=== PATIENT | female | born 1955 | race Hispanic/Latino ===

== ENCOUNTER 2017-05-16 20:51 | Emergency (ER) | payer MEDICAID ==
[~2017-05-16 20:51] MED LIST: ALBU0.63 IH; ALPR1TAB5 PO; AMLO10TA2 PO; ATOR10TA69 PO; CYAN10009 PO; DOXY100T2 PO; ERGO500014 PO; FOLI1TAB15 PO; FURO20TA6 PO; GLIP5TAB11 PO; HYDR-4060 PO; INSU100I21 SQ; LEVO200T5 PO; LEVO25TA9 PO; LINA5TAB PO; LISI-613 PO; SERT100T PO; SPIR100T5 PO
[2017-05-16 21:25] LABS: APPEARANCE,URINE Clear (CLEAR); BILIRUBIN,URINE Negative (NEGATIVE); COLOR,URINE Yellow (YELLOW); GLUCOSE, URINE (UA) Negative (NEGATIVE); KETONES,URINE Negative (NEGATIVE); LEUKOCYTE ESTERASE ,URINE Negative (NEGATIVE); NITRATE,URINE Negative (NEGATIVE); OCCULT BLOOD,URINE Trace (NEGATIVE); PROTEIN,URINE Negative (NEGATIVE); UROBILINOGEN,URINE 0.2 mg/dL (0.2-1.0)
[2017-05-16 21:30] LABS: BASOPHILS % (AUTO) 0.6 % (0.0-5.0); EOSINOPHILS % (AUTO) 1.6 % (0.0-8.0); HEMATOCRIT 33.1 % (36-48); LYMPHOCYTES % (AUTO) 22.8 % (21.0-51.0); MEAN CORPUSCULAR HEMOGLOBIN 32.4 pg (27.0-33.0); MEAN CORPUSCULAR VOLUME 92.6 fL (79-99); MONOCYTES % (AUTO) 8.7 % (3.0-13.0); NEUTROPHILS % (AUTO) 66.3 % (40.0-77.0); PLATELET COUNT (AUTO) 142 K/uL (130-400); RED BLOOD CELL COUNT(AUTO) 3.58 MIL/uL (4.00-5.50); RED CELL DISTRIBUTION WIDTH 14.5 % (11.0-15.5); WHITE BLOOD COUNT (AUTO) 8.3 K/uL (4.8-10.8)
[2017-05-16 21:35] LABS: BACTERIA,URINE None Seen /HPF (None Seen); RBC,URINE 0-1 /HPF (0-1); SQUAMOUS EPITHELIAL CELL,UR 0-2 /HPF (0-2); WBC,URINE 0-1 /HPF (0-1)
[2017-05-16 21:44] LABS: CREATININE 1.8 mg/dL (0.5-1.5); POTASSIUM 4.6 mmol/L (3.5-5.1)
[2017-05-16 21:57] LABS: ALBUMIN 2.7 g/dL (3.5-5.0); BILIRUBIN,TOTAL 0.7 mg/dL (0.2-1.0); CREATINE KINASE MB 0.9 ng/mL (0.5-3.6); TOTAL PROTEIN, SERUM 6.6 g/dL (6.0-8.3)
== END 2017-05-16 23:25 | disposition home or self-care (01) ==
LOC: EDH 20:51
DX: I10 Essential (primary) hypertension (principal); R20.2 Paresthesia of skin; G89.29 Other chronic pain; E11.9 Type 2 diabetes mellitus without complications; I25.10 Atherosclerotic heart disease of native coronary artery without angina pectoris; E78.5 Hyperlipidemia, unspecified; E07.9 Disorder of thyroid, unspecified; Z88.0 Allergy status to penicillin; Z88.8 Allergy status to other drugs, medicaments and biological substances
CPT/HCPCS: 36415; 80053; 81001; 82550; 82553; 85025; 93005

== ENCOUNTER 2017-12-12 10:11 | Emergency (ER) | payer MEDICAID ==
[~2017-12-12 10:11] MED LIST changes: -AMLO10TA2 PO; +AMLO10TA6 PO
[2017-12-12] MEDS ORDERED: MORPHINE SULFATE 2 MG/ML 1ML SYG ONE (11:40)
[2017-12-12] MEDS ORDERED: ONDANSETRON HCL 4 MG/2 ML VIAL ONE (11:40)
[2017-12-12 12:04] LABS: APPEARANCE,URINE Clear (CLEAR); BILIRUBIN,URINE Negative (NEGATIVE); COLOR,URINE Yellow (YELLOW); GLUCOSE, URINE (UA) Negative (NEGATIVE); KETONES,URINE Negative (NEGATIVE); LEUKOCYTE ESTERASE ,URINE Negative (NEGATIVE); NITRATE,URINE Negative (NEGATIVE); OCCULT BLOOD,URINE Trace (NEGATIVE); PROTEIN,URINE POS 2+ (NEGATIVE)
[2017-12-12 12:35] LABS: BACTERIA,URINE Rare /HPF (None Seen); RBC,URINE 0-1 /HPF (0-1); SQUAMOUS EPITHELIAL CELL,UR Rare /HPF (0-2); WBC,URINE None Seen /HPF (0-1)
[2017-12-12 13:26] LABS: BASOPHILS % (AUTO) 0.7 % (0.0-5.0); EOSINOPHILS % (AUTO) 0.8 % (0.0-8.0); LYMPHOCYTES % (AUTO) 21.6 % (21.0-51.0); MEAN CORPUSCULAR HGB CONC 34.6 g/dL (32.0-36.0); MEAN CORPUSCULAR VOLUME 89.6 fL (79-99); MONOCYTES % (AUTO) 7.8 % (3.0-13.0); NEUTROPHILS % (AUTO) 69.1 % (40.0-77.0); PLATELET COUNT (AUTO) 148 K/uL (130-400); RED BLOOD CELL COUNT(AUTO) 3.57 MIL/uL (4.00-5.50); RED CELL DISTRIBUTION WIDTH 13.7 % (11.0-15.5); WHITE BLOOD COUNT (AUTO) 4.7 K/uL (4.8-10.8)
[2017-12-12 13:41] LABS: ALBUMIN 2.6 g/dL (3.5-5.0); BILIRUBIN,TOTAL 0.4 mg/dL (0.2-1.0); CREATININE 1.7 mg/dL (0.5-1.5); TOTAL PROTEIN, SERUM 6.8 g/dL (6.0-8.3)
[2017-12-12 14:21] LABS: POTASSIUM 5.5 mmol/L (3.5-5.1)
== END 2017-12-12 16:24 | disposition home or self-care (01) ==
LOC: EDH 10:11
DX: M54.5 Low back pain (principal); M25.551 Pain in right hip; I10 Essential (primary) hypertension; E78.5 Hyperlipidemia, unspecified; E11.9 Type 2 diabetes mellitus without complications; F32.9 Major depressive disorder, single episode, unspecified; I25.10 Atherosclerotic heart disease of native coronary artery without angina pectoris; Z88.0 Allergy status to penicillin; Z88.7 Allergy status to serum and vaccine
CPT/HCPCS: 36415; 72131; 73502; 80053; 81001; 85025; 96374; 96375; 99285; J2405

== ENCOUNTER 2018-06-14 20:03 | Inpatient (IN) | payer MEDICAID ==
[~2018-06-14] VITALS: Ht 160 cm; Wt 147.4 kg
[~2018-06-14 20:03] MED LIST changes: -AMLO10TA6 PO; +AMLO10TA7 PO
[2018-06-14] MEDS ORDERED: ACETAMINOPHEN EXTRA STRENGTH 500 MG TABLET ONE (20:14)
[2018-06-14 20:38] LABS: BASOPHILS % (AUTO) 0.3 % (0.0-5.0); EOSINOPHILS % (AUTO) 0.2 % (0.0-8.0); HEMATOCRIT 30.7 % (36-48); LYMPHOCYTES % (AUTO) 9.8 % (21.0-51.0); MEAN CORPUSCULAR HEMOGLOBIN 31.1 pg (27.0-33.0); MEAN CORPUSCULAR HGB CONC 34.8 g/dL (32.0-36.0); MEAN CORPUSCULAR VOLUME 89.4 fL (79-99); MONOCYTES % (AUTO) 7.7 % (3.0-13.0); PLATELET COUNT (AUTO) 120 K/uL (130-400); RED BLOOD CELL COUNT(AUTO) 3.43 MIL/uL (4.00-5.50); RED CELL DISTRIBUTION WIDTH 13.2 % (11.0-15.5); WHITE BLOOD COUNT (AUTO) 8.9 K/uL (4.8-10.8)
[2018-06-14 20:56] LABS: APPEARANCE,URINE Clear (CLEAR); BILIRUBIN,URINE Negative (NEGATIVE); COLOR,URINE Yellow (YELLOW); GLUCOSE, URINE (UA) Negative (NEGATIVE); KETONES,URINE Negative (NEGATIVE); LEUKOCYTE ESTERASE ,URINE Moderate (NEGATIVE); NITRATE,URINE Negative (NEGATIVE); OCCULT BLOOD,URINE Small (NEGATIVE); PROTEIN,URINE POS 2+ mg/dL (NEGATIVE)
[2018-06-14 21:15] LABS: CREATININE 1.8 mg/dL (0.5-1.5); POTASSIUM 5.6 mmol/L (3.5-5.1)
[2018-06-14 21:18] LABS: AMORPHOUS SEDIMENT,UR Few /LPF (None Seen); BACTERIA,URINE Few /HPF (None Seen); SQUAMOUS EPITHELIAL CELL,UR Few /HPF (0-2)
[2018-06-14 21:19] LABS: ALBUMIN 2.7 g/dL (3.5-5.0); BILIRUBIN,TOTAL 0.5 mg/dL (0.2-1.0); TOTAL PROTEIN, SERUM 6.3 g/dL (6.0-8.3)
[2018-06-14] MEDS ORDERED: ONDANSETRON HCL 4 MG/2 ML VIAL ONE (22:29)
[2018-06-14] MEDS ORDERED: MORPHINE SULFATE 4 MG/1ML SYG ONE (22:30)
[2018-06-14] MEDS ORDERED: LEVOFLOXACIN 750 MG/D5W 150 ML 150 ML ONE (22:36)
[2018-06-15] MEDS ORDERED: SODIUM POLYSTYRENE SULFONATE 15 GM/60 ML ML ONE (00:34)
[2018-06-15] MEDS ORDERED: CEFTRIAXONE SODIUM 1 GM ONE (01:05)
--- NOTE | 2018-06-15 01:15 | NUR ---
REPORT RECEIVED BY BETH QUAN
--- NOTE | 2018-06-15 02:17 | NUR ---
PT ARRIVED TO UNIT AT THIS TIME. NO DISTRESS NOTED. REQUIRED ASSISTANCE TO AMBULATE TO BED. WEIGHED ON STANDING SCALE. AAO3. PERRLA. AT BEDSIDE. NS AT 100ML/HR. ROOM AIR. STATES NAUSEA. GIVEN ZOFRAN 4MG VIA IV.
[2018-06-15] MEDS ORDERED: ONDANSETRON HCL 4 MG/2 ML VIAL ONE (02:29)
[2018-06-15 02:39] VITALS: BP 127/63
[2018-06-15] MEDS: SODIUM CHLORIDE 0.9% 1000ML 1,000 ML IV SCH ×4 (03:34→22:56)
[2018-06-15] MEDS ORDERED: SODIUM POLYSTYRENE SULFONATE 15 GM/60 ML ML PO ONE (03:45)
[2018-06-15] MEDS ORDERED: ACETAMINOPHEN 325 MG TAB PO PRN (03:45)
[2018-06-15] MEDS ORDERED: PHARMACY COMMUNICATION MISC SCH (03:45)
[2018-06-15] MEDS ORDERED: ONDANSETRON HCL 4 MG/2 ML VIAL IVP PRN (03:45)
[2018-06-15 03:59] LABS: HEMATOCRIT 28.5 % (36-48); MEAN CORPUSCULAR HEMOGLOBIN 30.2 pg (27.0-33.0); MEAN CORPUSCULAR HGB CONC 33.6 g/dL (32.0-36.0); MEAN CORPUSCULAR VOLUME 89.8 fL (79-99); PLATELET COUNT (AUTO) 103 K/uL (130-400); RED BLOOD CELL COUNT(AUTO) 3.17 MIL/uL (4.00-5.50); RED CELL DISTRIBUTION WIDTH 13.5 % (11.0-15.5); WHITE BLOOD COUNT (AUTO) 6.6 K/uL (4.8-10.8)
[2018-06-15 04:07] LABS: CREATININE 1.8 mg/dL (0.5-1.5); POTASSIUM 4.7 mmol/L (3.5-5.1)
[2018-06-15] MEDS ORDERED: ALPR1TAB5 PO (04:38)
[2018-06-15] MEDS ORDERED: LISI-617 PO (04:38)
[2018-06-15] MEDS ORDERED: LINA5TAB PO (04:38)
[2018-06-15] MEDS ORDERED: FOLI1TAB15 PO (04:38)
[2018-06-15] MEDS ORDERED: TRAM50TA4 PO (04:38)
[2018-06-15] MEDS ORDERED: MONT10TA24 PO (04:38)
[2018-06-15] MEDS ORDERED: ONDA8TAB11 PO (04:38)
[2018-06-15] MEDS ORDERED: SPIR25TA6 PO (04:38)
[2018-06-15] MEDS ORDERED: AMLO10TA7 PO (04:38)
[2018-06-15] MEDS ORDERED: LISI5TAB PO (04:38)
[2018-06-15] MEDS ORDERED: FURO40TA5 PO (04:38)
[2018-06-15] MEDS ORDERED: ALBU8.5H8 IH (04:38)
[2018-06-15] MEDS ORDERED: LEVO200T5 PO (04:38)
[2018-06-15] MEDS ORDERED: CYAN100084 PO (04:38)
[2018-06-15] MEDS ORDERED: SERT50TA PO (04:38)
[2018-06-15] MEDS ORDERED: ERGO500014 PO (04:38)
[2018-06-15 07:35] VITALS: BP 136/59
--- NOTE | 2018-06-15 09:36 | NUR ---
[facility] met with pt, Addi [phone] and daughter at bedside. Pt on SSD, has daily provider, w/c, bsc, shower chair, nebulizer, no services. Plan is home at [place] Daughter Heydi Rm [phone] is also ER contact Addendum: 06/15/18 at 0938 by ASHLEY FAITH SS Amended: Links added.
[2018-06-15] MEDS: PANTOPRAZOLE SODIUM 40 MG TABLET.DR PO SCH (09:44)
[2018-06-15 11:54] VITALS: BP 141/69
[2018-06-15] MEDS ORDERED: ALBUTEROL SULFATE 0.083% 2.5 MG/3 ML INH IH SCH (12:00)
[2018-06-15] MEDS ORDERED: ALBUTEROL SULFATE 0.083% 2.5 MG/3 ML INH IH PRN (12:15)
[2018-06-15 15:45] VITALS: BP 150/60
--- NOTE | 2018-06-15 16:28 | NUR ---
PAGED DR. CRUM TO INFORM OF PT.'S REQUEST FOR DR. WEINER CONSULT, PER PT.'S DAUGHTER. AWAITING RESPONSE.
--- NOTE | 2018-06-15 16:38 | NUR ---
AWAITING DR. CRUM RESPONSE. PAGED DR. CRUM VIA HIS OFFICE TO INFORM OF PT.'S REQUEST FOR DR. WEINER CONSULT.
--- NOTE | 2018-06-15 17:00 | NUR ---
CALLED DR. WEINER, TO HIS CELLULAR PHONE NUMBER PROVIDED BY HIS OFFICE STAFF, TO INFORM OF CONSULT. NO RESPONSE. VOICEMAIL LEFT FOR RETURN NUMBER AND CONSULT, PENDING CALLBACK TO INFORM OF PT.'S NAME AND REASON FOR CONSULT.
--- NOTE | 2018-06-15 17:07 | NUR ---
RECEIVED CALL FROM DR. WEINER, INFORMED OF CONSULT AND QUESTIONS ANSWERED. STATES WILL SEE PT. FOLLOW UP WHEN DISCHARGED FROM [facility].
[2018-06-15] MEDS ORDERED: LACT20PA6 PO (17:32)
--- NOTE | 2018-06-15 19:35 | NUR ---
PATIENT COMPLAINING OF HIGH FEVER, TEMP 99.7 ORALLY. PATIENT WITH 2 BLANKETS OFF, ASKED PATIENT IF COULD REMOVE ONE BLANKET TO AID IN DECREASING TEMP, PATIENT STATED NO. PATIENT, ALSO COMPLAINING OF BED BEING UNCOMFORTABLE, ASKED PATIENT IF I COULD HELP HER REPOSTION, PATIENT STATED NO. 0-PATIENT MEDICATED WITH TYLENOL 650 MG PO PER ORDERS FOR TEMP/REQUEST. PATIENT REQUESTING ANOTHER URINE CULTURE TO BE TESTED. SAMPLING EXPERT CALLED, NURSE WAS TOLD TO SENT URINE CULTURE. URINE CULTURE COLLECTED AND SENT TO LAB. PATIENT STATING MAY WANT TO LEAVE HERE AND GO TO [facility], THIS INFORMATION TOLD TO SAMPLING EXPERT.
[2018-06-15 19:42] VITALS: BP 165/67
[2018-06-15] MEDS ORDERED: TRAMADOL HCL 50 MG TABLET PO SCH (21:00)
[2018-06-15] MEDS ORDERED: TRAMADOL HCL 50 MG TABLET PO PRN (21:00)
[2018-06-15 21:05] LABS: APPEARANCE,URINE Clear (CLEAR); BILIRUBIN,URINE Negative (NEGATIVE); COLOR,URINE Yellow (YELLOW); GLUCOSE, URINE (UA) Negative (NEGATIVE); KETONES,URINE Negative (NEGATIVE); LEUKOCYTE ESTERASE ,URINE Trace (NEGATIVE); NITRATE,URINE Negative (NEGATIVE); OCCULT BLOOD,URINE Small (NEGATIVE); PROTEIN,URINE POS 2+ mg/dL (NEGATIVE); UROBILINOGEN,URINE 0.2 mg/dL (0.2-1.0)
[2018-06-15] MEDS: CEFTRIAXONE SODIUM 1 GM IVP SCH (21:42)
[2018-06-15] MEDS: ALPRAZOLAM 1 MG TAB PO SCH (21:43)
[2018-06-15] MEDS: MONTELUKAST SODIUM 10 MG TAB PO SCH (21:43)
[2018-06-15] MEDS: ONDANSETRON 4 MG TABLET PO SCH (21:43)
[2018-06-15 22:02] LABS: BACTERIA,URINE Few /HPF (None Seen); RBC,URINE 0-1 /HPF (0-1); WBC,URINE 0-1 /HPF (0-1)
[2018-06-15 22:03] LABS: SQUAMOUS EPITHELIAL CELL,UR 0-2 /HPF (0-2)
[2018-06-15 23:40] VITALS: BP_SYST 119; BP_SYST 126; BP_DIAS 57; BP_DIAS 61
[2018-06-16 04:00] VITALS: BP 140/66
[2018-06-16 04:09] LABS: HEMATOCRIT 28.1 % (36-48); MEAN CORPUSCULAR HGB CONC 34.6 g/dL (32.0-36.0); MEAN CORPUSCULAR VOLUME 89.6 fL (79-99); PLATELET COUNT (AUTO) 91 K/uL (130-400); RED BLOOD CELL COUNT(AUTO) 3.14 MIL/uL (4.00-5.50); RED CELL DISTRIBUTION WIDTH 13.8 % (11.0-15.5); WHITE BLOOD COUNT (AUTO) 5.4 K/uL (4.8-10.8)
[2018-06-16 04:32] LABS: ALBUMIN 2.3 g/dL (3.5-5.0); BILIRUBIN,TOTAL 0.4 mg/dL (0.2-1.0); CREATININE 1.8 mg/dL (0.5-1.5); MAGNESIUM 1.8 mg/dL (1.80-2.40); PHOSPHORUS 4.2 mg/dL (2.5-4.9); POTASSIUM 4.4 mmol/L (3.5-5.1); TOTAL PROTEIN, SERUM 5.5 g/dL (6.0-8.3); URIC ACID 7.7 mg/dL (2.6-7.2)
[2018-06-16] MEDS: LEVOTHYROXINE 100 MCG TABLET PO SCH (06:17)
[2018-06-16 07:47] VITALS: BP 136/64
[2018-06-16] MEDS: CYANOCOBALAMIN (VITAMIN B-12) 1,000 MCG TABLET PO SCH (09:07)
[2018-06-16] MEDS: AMLODIPINE BESYLATE 5 MG TAB PO SCH (09:07)
[2018-06-16] MEDS: FOLIC ACID 1 MG TABLET PO SCH (09:07)
[2018-06-16] MEDS: LINAGLIPTIN 5 MG TABLET PO SCH (09:08)
[2018-06-16] MEDS: ALPRAZOLAM 1 MG TAB PO SCH ×2 (09:08→20:48)
[2018-06-16] MEDS: ONDANSETRON 4 MG TABLET PO SCH ×2 (09:08→20:48)
[2018-06-16] MEDS: SODIUM CHLORIDE 0.9% 1000ML 1,000 ML IV SCH ×3 (09:08→21:50)
[2018-06-16] MEDS: PANTOPRAZOLE SODIUM 40 MG TABLET.DR PO SCH (09:08)
[2018-06-16] MEDS: SERTRALINE HCL 50 MG TABLET PO SCH (09:08)
--- NOTE | 2018-06-16 09:45 | NUR ---
DR. Yoanna MELGOZA IN ROOM WITH PT.
[2018-06-16 11:12] VITALS: BP 136/65
[2018-06-16 15:33] VITALS: BP 142/70
[2018-06-16 19:30] VITALS: BP 134/56
[2018-06-16] MEDS: MONTELUKAST SODIUM 10 MG TAB PO SCH (20:48)
[2018-06-16] MEDS: CEFTRIAXONE SODIUM 1 GM IVP SCH (20:48)
[2018-06-16 23:39] VITALS: BP 130/55
[2018-06-17 03:47] VITALS: BP 118/55
[2018-06-17 04:17] LABS: HEMATOCRIT 27.5 % (36-48); MEAN CORPUSCULAR HEMOGLOBIN 30.1 pg (27.0-33.0); MEAN CORPUSCULAR HGB CONC 33.8 g/dL (32.0-36.0); MEAN CORPUSCULAR VOLUME 89.2 fL (79-99); NUCLEATED RED BLOOD CELLS 0.1 % (0.0-0.19); PLATELET COUNT (AUTO) 115 K/uL (130-400); RED BLOOD CELL COUNT(AUTO) 3.08 MIL/uL (4.00-5.50); RED CELL DISTRIBUTION WIDTH 13.7 % (11.0-15.5); WHITE BLOOD COUNT (AUTO) 6.2 K/uL (4.8-10.8)
[2018-06-17 04:32] LABS: CREATININE 1.8 mg/dL (0.5-1.5); POTASSIUM 4.4 mmol/L (3.5-5.1)
[2018-06-17] MEDS: SODIUM CHLORIDE 0.9% 1000ML 1,000 ML IV SCH ×2 (05:45→10:48)
[2018-06-17 05:46] LABS: BAND NEUTROPHILS % (MANUAL) 6 % (0-2); EOSINOPHILS % (MANUAL) 2 % (1-6); LYMPHOCYTES % (MANUAL) 12 % (22-44); MAN.DIFF COMMENT-IMPRESSION MANUAL DIFFERENTIAL; MONOCYTES % (MANUAL) 1 % (2-9); PLATELET MORPHOLOGY COMMENT SLIGHTLY DECREASED; REACTIVE LYMPHOCYTES 2 % (0-0); SEGMENTED NEUTROPHILS % 77 % (40-70)
[2018-06-17] MEDS: LEVOTHYROXINE 100 MCG TABLET PO SCH (05:47)
[2018-06-17 07:39] VITALS: BP 141/66
[2018-06-17] MEDS: AMLODIPINE BESYLATE 5 MG TAB PO SCH (10:55)
[2018-06-17] MEDS: PANTOPRAZOLE SODIUM 40 MG TABLET.DR PO SCH (10:55)
[2018-06-17] MEDS: ONDANSETRON 4 MG TABLET PO SCH (10:56)
[2018-06-17] MEDS: CYANOCOBALAMIN (VITAMIN B-12) 1,000 MCG TABLET PO SCH (10:56)
[2018-06-17] MEDS: ALPRAZOLAM 1 MG TAB PO SCH (10:56)
[2018-06-17] MEDS: SERTRALINE HCL 50 MG TABLET PO SCH (10:57)
[2018-06-17] MEDS: LINAGLIPTIN 5 MG TABLET PO SCH (10:57)
[2018-06-17] MEDS: FOLIC ACID 1 MG TABLET PO SCH (10:57)
--- NOTE | 2018-06-17 11:00 | NUR ---
Dr. Lechuga notified of ESBL to urine, orders entered.
[2018-06-17 11:42] VITALS: BP 143/54
[2018-06-17] MEDS ORDERED: LEVO500T89 PO (12:14)
[2018-06-17] MEDS ORDERED: LEVOFLOXACIN 500 MG/D5W 100 ML 100 ML IV ONE (13:00)
--- NOTE | 2018-06-17 15:20 | NUR ---
D/C HOME USING TEACH BACK TECHNIQUE RE; FOLLOW UP APPOINTMENTS, WITH DR. MELGOZA, PCP, HUSAM IN 1-2 WEEKS, S/S TO WATCH FOR AND WHEN TO CALL PCP OR 911. IV OUT INTACT, DENIES ANY NEEDS, NO DISTRESS. AAOX3. FOLLOW UP WITH YOUR PRIMARY DOCTOR IN 1-2 WEEKS. OR MAY GO A WALK IN. FOLLOW UP WITH DR. WEINER IN 1-2 WEEKS. CALL TO SET UP AN APPOINTMENT. MAKE SURE TO COMPLETE FULL COURSE OF ANTIBIOTIC THERAPY FOR ESBL TO THE URINE. COMPLETING FULL COURSE WILL PREVENT A SUPER INFECTION IN THE URINE. CALL YOUR PRIMARY DOCTOR IF FEVERS GREATER THAN 100.5 OR CONFUSED, CHILLS, BODY ACHES. CALL 911 IF SHORTNESS OF BREATH OR CHEST PAIN DOES NOT RESOLVE WITH REST.
[2018-06-17 15:51] VITALS: BP 121/59
--- NOTE | 2018-06-17 17:30 | NUR ---
CALLED IN PRESCRIPTION FOR DR. Aleja MELGOZA, LEVAQUIN 500MG PO DAILY X 10 DAYS. SPOKE WITH PHARMACIST PETER.
[2018-06-22] MEDS ORDERED: ERGOCALCIFEROL (VITAMIN D2) 50,000 UNIT CAPSULE PO SCH (09:00)
== END 2018-06-17 16:50 | disposition home or self-care (01) | DRG 463 ==
LOC: EDH 20:03 → EDHIP 20:04 → 2DH 06-15 02:18
PROVIDERS: ADMIT Internal Medicine Nephrology; ATTEND Internal Medicine Nephrology
DX: N39.0 Urinary tract infection, site not specified (principal); N17.9 Acute kidney failure, unspecified; E11.22 Type 2 diabetes mellitus with diabetic chronic kidney disease; E11.51 Type 2 diabetes mellitus with diabetic peripheral angiopathy without gangrene; E87.5 Hyperkalemia; N18.9 Chronic kidney disease, unspecified; E66.9 Obesity, unspecified; D64.9 Anemia, unspecified; I12.9 Hypertensive chronic kidney disease with stage 1 through stage 4 chronic kidney disease, or unspecified chronic kidney disease; J45.909 Unspecified asthma, uncomplicated; E87.8 Other disorders of electrolyte and fluid balance, not elsewhere classified; Z68.43 Body mass index [BMI] 50.0-59.9, adult; Z71.3 Dietary counseling and surveillance
CPT/HCPCS: 36415; 71045; 71250; 76770; 80048; 80053; 81001; 82948; 83605; 83690; 83735; 84100; 84484; 84550; 85025; 85027; 87040; 87077; 87088; 87186; 93005; 94640; 94664; 99291; A4218; G0378; J0696; J1956; J2270; J2405; J7030; Q0162

== ENCOUNTER 2018-06-21 21:22 | Emergency (ER) | payer MEDICAID ==
[~2018-06-21 21:22] MED LIST changes: -ALBU0.63 IH; +ALBU8.5H8 IH; -ATOR10TA69 PO; +CYAN100084 PO; -CYAN10009 PO; -DOXY100T2 PO; -FURO20TA6 PO; +FURO40TA5 PO; -GLIP5TAB11 PO; -HYDR-4060 PO; -INSU100I21 SQ; +LACT20PA6 PO; -LEVO25TA9 PO; +LEVO500T89 PO; -LISI-613 PO; +LISI-617 PO; +LISI5TAB PO; +MONT10TA24 PO; +ONDA8TAB11 PO; -SERT100T PO; +SERT50TA PO; -SPIR100T5 PO; +SPIR25TA6 PO; +TRAM50TA4 PO
== END 2018-06-21 22:55 | disposition home or self-care (01) ==
LOC: EDH 21:22
DX: E11.649 Type 2 diabetes mellitus with hypoglycemia without coma (principal); I10 Essential (primary) hypertension; I25.10 Atherosclerotic heart disease of native coronary artery without angina pectoris; E78.5 Hyperlipidemia, unspecified; Z88.0 Allergy status to penicillin; Z88.8 Allergy status to other drugs, medicaments and biological substances
CPT/HCPCS: 82948; 99282

== ENCOUNTER 2018-08-28 17:45 | Emergency (ER) | payer MEDICAID ==
[2018-08-28] MEDS ORDERED: CLINDAMYCIN 600 MG/D5% WATER 50 ML IV ONE (18:10)
[2018-08-28] MEDS ORDERED: SODIUM CHLORIDE 0.9% 1000ML 1,000 ML IV ONE (18:11)
[2018-08-28 18:28] LABS: BASOPHILS % (AUTO) 0.4 % (0.0-5.0); EOSINOPHILS % (AUTO) 1.7 % (0.0-8.0); HEMATOCRIT 32.5 % (36-48); LYMPHOCYTES % (AUTO) 17.1 % (21.0-51.0); MEAN CORPUSCULAR HEMOGLOBIN 29.3 pg (27.0-33.0); MEAN CORPUSCULAR HGB CONC 33.6 g/dL (32.0-36.0); MEAN CORPUSCULAR VOLUME 87.2 fL (79-99); MONOCYTES % (AUTO) 8.8 % (3.0-13.0); PLATELET COUNT (AUTO) 145 K/uL (130-400); RED BLOOD CELL COUNT(AUTO) 3.73 MIL/uL (4.00-5.50); RED CELL DISTRIBUTION WIDTH 14.3 % (11.0-15.5); WHITE BLOOD COUNT (AUTO) 6.1 K/uL (4.8-10.8)
[2018-08-28 18:39] LABS: CREATININE 1.6 mg/dL (0.5-1.5); POTASSIUM 5.1 mmol/L (3.5-5.1)
== END 2018-08-28 22:08 | disposition home or self-care (01) ==
LOC: EDH 17:45
DX: L76.82 Other postprocedural complications of skin and subcutaneous tissue (principal); L02.415 Cutaneous abscess of right lower limb; I25.10 Atherosclerotic heart disease of native coronary artery without angina pectoris; F32.9 Major depressive disorder, single episode, unspecified; E11.9 Type 2 diabetes mellitus without complications; E78.5 Hyperlipidemia, unspecified; I10 Essential (primary) hypertension; E66.01 Morbid (severe) obesity due to excess calories; E07.9 Disorder of thyroid, unspecified; Z88.0 Allergy status to penicillin; Z68.43 Body mass index [BMI] 50.0-59.9, adult; Y83.8 Other surgical procedures as the cause of abnormal reaction of the patient, or of later complication, without mention of misadventure at the time of the procedure; Y92.89 Other specified places as the place of occurrence of the external cause
CPT/HCPCS: 36415; 74176; 80048; 85025; 96374; 99285; J3490; J7030

== ENCOUNTER 2018-09-09 15:56 | Observation (INO) | payer MEDICAID | END 2018-09-10 17:30 | disposition home or self-care (01) | LOC: EDH 15:56 → EDHIP 15:57 → 3CH 20:31 | DX: S71.001A Unspecified open wound, right hip, initial encounter (principal); I11.0 Hypertensive heart disease with heart failure; E87.5 Hyperkalemia; I50.9 Heart failure, unspecified; E11.9 Type 2 diabetes mellitus without complications; Z79.4 Long term (current) use of insulin ==

== ENCOUNTER 2018-10-21 02:08 | Emergency (ER) | payer MEDICAID ==
[~2018-10-21 02:08] MED LIST changes: +ASPI-891 PO; +FERR324T10 PO; +GLIP5TAB11 PO; +HYDR-2132 PO; +LACT1CAP79 PO; -LACT20PA6 PO; +LEVO500T2 PO; -LEVO500T89 PO; -LISI-617 PO; -MONT10TA24 PO; -ONDA8TAB11 PO; -SERT50TA PO
[2018-10-21] MEDS ORDERED: SODIUM CHLORIDE 0.9% 1000ML 1,000 ML IV ONE (02:35)
[2018-10-21] MEDS ORDERED: PROMETHAZINE HCL 25 MG/ML 1ML AMPULE IM ONE (03:03)
[2018-10-21 03:05] LABS: BASOPHILS % (AUTO) 0.9 % (0.0-5.0); EOSINOPHILS % (AUTO) 2.3 % (0.0-8.0); HEMATOCRIT 27.3 % (36-48); LYMPHOCYTES % (AUTO) 18.7 % (21.0-51.0); MEAN CORPUSCULAR HEMOGLOBIN 31.3 pg (27.0-33.0); MEAN CORPUSCULAR HGB CONC 33.2 g/dL (32.0-36.0); MEAN CORPUSCULAR VOLUME 94.3 fL (79-99); MONOCYTES % (AUTO) 10.8 % (3.0-13.0); NEUTROPHILS % (AUTO) 67.3 % (40.0-77.0); PLATELET COUNT (AUTO) 79 K/uL (130-400); RED BLOOD CELL COUNT(AUTO) 2.89 MIL/uL (4.00-5.50); RED CELL DISTRIBUTION WIDTH 18.8 % (11.0-15.5); WHITE BLOOD COUNT (AUTO) 4.9 K/uL (4.8-10.8)
[2018-10-21 03:20] LABS: CREATININE 1.7 mg/dL (0.5-1.5); POTASSIUM 4.3 mmol/L (3.5-5.1)
[2018-10-21 03:25] LABS: ALBUMIN 2.3 g/dL (3.5-5.0); BILIRUBIN,TOTAL 0.4 mg/dL (0.2-1.0); TOTAL PROTEIN, SERUM 5.5 g/dL (6.0-8.3)
[2018-10-21 04:49] LABS: APPEARANCE,URINE Clear (CLEAR); BILIRUBIN,URINE Negative (NEGATIVE); COLOR,URINE Yellow (YELLOW); GLUCOSE, URINE (UA) Negative (NEGATIVE); KETONES,URINE Negative (NEGATIVE); LEUKOCYTE ESTERASE ,URINE Negative (NEGATIVE); NITRATE,URINE Negative (NEGATIVE); OCCULT BLOOD,URINE Negative (NEGATIVE); PROTEIN,URINE Trace mg/dL (NEGATIVE); UROBILINOGEN,URINE 0.2 mg/dL (0.2-1.0)
== END 2018-10-21 06:07 | disposition home or self-care (01) ==
LOC: EDH 02:08
DX: R11.2 Nausea with vomiting, unspecified (principal); T36.4X5A Adverse effect of tetracyclines, initial encounter; E11.9 Type 2 diabetes mellitus without complications; E78.5 Hyperlipidemia, unspecified; I10 Essential (primary) hypertension; I25.10 Atherosclerotic heart disease of native coronary artery without angina pectoris; E07.9 Disorder of thyroid, unspecified; Z88.0 Allergy status to penicillin; Z88.8 Allergy status to other drugs, medicaments and biological substances; Y92.89 Other specified places as the place of occurrence of the external cause
CPT/HCPCS: 36415; 80053; 81003; 85025; 96361; 96374; 99285; J2550; J7030

== ENCOUNTER 2018-11-05 23:22 | Inpatient (IN) | payer MEDICAID ==
[~2018-11-05] VITALS: Ht 160 cm; Wt 150.1 kg
[2018-11-05] MEDS ORDERED: ONDANSETRON HCL 4 MG/2 ML VIAL ONE (23:35)
[2018-11-05] MEDS ORDERED: SODIUM CHLORIDE 0.9% 1000ML 1,000 ML IV ONE (23:36)
[2018-11-05 23:56] LABS: EOSINOPHILS % (AUTO) 1.1 % (0.0-8.0); HEMATOCRIT 31.7 % (36-48); LYMPHOCYTES % (AUTO) 15.1 % (21.0-51.0); MEAN CORPUSCULAR HEMOGLOBIN 32.6 pg (27.0-33.0); MEAN CORPUSCULAR HGB CONC 34.5 g/dL (32.0-36.0); MEAN CORPUSCULAR VOLUME 94.6 fL (79-99); MONOCYTES % (AUTO) 9.9 % (3.0-13.0); NEUTROPHILS % (AUTO) 72.9 % (40.0-77.0); PLATELET COUNT (AUTO) 96 K/uL (130-400); RED BLOOD CELL COUNT(AUTO) 3.35 MIL/uL (4.00-5.50); RED CELL DISTRIBUTION WIDTH 16.9 % (11.0-15.5); WHITE BLOOD COUNT (AUTO) 5.7 K/uL (4.8-10.8)
[2018-11-06 00:06] LABS: POTASSIUM 4.3 mmol/L (3.5-5.1)
[2018-11-06 00:11] LABS: ALBUMIN 2.8 g/dL (3.5-5.0); BILIRUBIN,TOTAL 0.5 mg/dL (0.2-1.0); TOTAL PROTEIN, SERUM 6.4 g/dL (6.0-8.3)
[2018-11-06 00:20] LABS: APPEARANCE,URINE Cloudy (CLEAR); BILIRUBIN,URINE Negative (NEGATIVE); COLOR,URINE Yellow (YELLOW); GLUCOSE, URINE (UA) Negative (NEGATIVE); KETONES,URINE Negative (NEGATIVE); LEUKOCYTE ESTERASE ,URINE Negative (NEGATIVE); NITRATE,URINE Negative (NEGATIVE); OCCULT BLOOD,URINE Trace (NEGATIVE); PROTEIN,URINE Trace mg/dL (NEGATIVE); UROBILINOGEN,URINE 0.2 mg/dL (0.2-1.0)
[2018-11-06 00:32] LABS: AMORPHOUS SEDIMENT,UR Moderate /LPF (None Seen); BACTERIA,URINE None Seen /HPF (None Seen); MUCUS,URINE None Seen LPF (None Seen); RBC,URINE 0-1 /HPF (0-1); SQUAMOUS EPITHELIAL CELL,UR Few /HPF (0-2); WBC,URINE None Seen /HPF (0-1)
[2018-11-06] MEDS ORDERED: MECLIZINE HCL 25 MG TABLET ONE (00:59)
[2018-11-06] MEDS ORDERED: DIAZEPAM 2 MG TAB ONE ×2 (01:00→02:10)
[2018-11-06] MEDS ORDERED: DiphenhydrAMINE HCL 50 MG/ML VIAL ONE (03:32)
[2018-11-06] MEDS ORDERED: ACETAMINOPHEN 325 MG TAB PO PRN ×2 (04:45)
[2018-11-06] MEDS ORDERED: LACTULOSE 20 GM/30 ML UDCUP PO PRN (04:45)
[2018-11-06] MEDS ORDERED: MORPHINE SULFATE 2 MG/ML 1ML SYG IV PRN (04:45)
[2018-11-06] MEDS ORDERED: ONDANSETRON HCL 4 MG/2 ML VIAL IV PRN (04:45)
[2018-11-06 05:41] VITALS: BP 128/79
[2018-11-06] MEDS: INSULIN HUMULIN R 100 UNIT/ML 3ML SQ SCH ×4 (06:50→21:00)
[2018-11-06 07:10] LABS: TROPONIN I 0.05 ng/mL (0.00-0.06)
[2018-11-06 08:00] VITALS: BP 160/98
[2018-11-06] MEDS ORDERED: TRAMADOL HCL 50 MG TABLET PO PRN (08:45)
[2018-11-06] MEDS: ENOXAPARIN SODIUM 30 MG/0.3 ML SQ SCH (08:57)
[2018-11-06] MEDS: FAMOTIDINE 20MG TAB 20 MG TAB PO SCH (08:58)
[2018-11-06] MEDS: MECLIZINE HCL 25 MG TABLET PO PRN ×3 (08:58→20:00)
[2018-11-06 11:00] VITALS: BP 146/63
[2018-11-06] MEDS: LINAGLIPTIN 5 MG TABLET PO SCH (14:03)
[2018-11-06] MEDS: ASPIRIN 325MG EC TAB 325 MG TABLET.DR PO SCH (14:03)
[2018-11-06] MEDS: FOLIC ACID 1 MG TABLET PO SCH (14:03)
[2018-11-06] MEDS: LACTOBACILLUS RHAMNOSUS GG 1 EACH CAP.SPRINK PO SCH (14:03)
[2018-11-06] MEDS: FUROSEMIDE 40 MG TABLET PO SCH (14:03)
[2018-11-06] MEDS: LISINOPRIL 5 MG TABLET PO SCH (14:03)
[2018-11-06] MEDS: AMLODIPINE BESYLATE 5 MG TAB PO SCH (14:04)
[2018-11-06] MEDS: LEVOTHYROXINE 100 MCG TABLET PO SCH (14:04)
[2018-11-06] MEDS: FERROUS FUMARATE 324 MG TABLET PO SCH (14:04)
[2018-11-06] MEDS: SPIRONOLACTONE 25 MG TAB PO SCH (14:04)
[2018-11-06 16:00] VITALS: BP 138/64
--- NOTE | 2018-11-06 17:39 | NUR ---
cm note met with patient and spouse currently in room. but pt states spouse resides at his home. states she resides at home with daughter casper, pt has provider approx 4hrs daily, also has a home health in place for IV antibiotics daily at home. has pICC. unable to recall name of agency. . pt states she is mostly chairbound 2ndary to md placed her nonwt bearing status for now. has a scooter . states dc plan is back to home at time of dc. Addendum: 11/06/18 at 1743 by CECILIA KELLY CM Amended: Links added.
[2018-11-06 19:45] VITALS: BP 134/66
[2018-11-06 23:32] VITALS: BP 123/53
[2018-11-07 03:35] VITALS: BP 118/53
[2018-11-07] MEDS: LEVOTHYROXINE 100 MCG TABLET PO SCH (05:20)
[2018-11-07] MEDS: MECLIZINE HCL 25 MG TABLET PO PRN ×2 (05:21→12:26)
[2018-11-07 05:38] LABS: BASOPHILS % (AUTO) 0.5 % (0.0-5.0); HEMATOCRIT 28.8 % (36-48); LYMPHOCYTES % (AUTO) 16.6 % (21.0-51.0); MEAN CORPUSCULAR HEMOGLOBIN 32.3 pg (27.0-33.0); MEAN CORPUSCULAR HGB CONC 33.9 g/dL (32.0-36.0); MONOCYTES % (AUTO) 19.3 % (3.0-13.0); NEUTROPHILS % (AUTO) 61.6 % (40.0-77.0); NUCLEATED RED BLOOD CELLS 0.1 % (0.0-0.19); PLATELET COUNT (AUTO) 90 K/uL (130-400); RED BLOOD CELL COUNT(AUTO) 3.03 MIL/uL (4.00-5.50); RED CELL DISTRIBUTION WIDTH 16.8 % (11.0-15.5); WHITE BLOOD COUNT (AUTO) 3.2 K/uL (4.8-10.8)
[2018-11-07 05:55] LABS: CREATININE 1.8 mg/dL (0.5-1.5); POTASSIUM 4.7 mmol/L (3.5-5.1)
[2018-11-07] MEDS: INSULIN HUMULIN R 100 UNIT/ML 3ML SQ SCH ×4 (06:31→21:00)
[2018-11-07 08:05] VITALS: BP 152/84
[2018-11-07] MEDS: ASPIRIN 325MG EC TAB 325 MG TABLET.DR PO SCH (09:16)
[2018-11-07] MEDS: LINAGLIPTIN 5 MG TABLET PO SCH (09:16)
[2018-11-07] MEDS: FERROUS FUMARATE 324 MG TABLET PO SCH (09:16)
[2018-11-07] MEDS: AMLODIPINE BESYLATE 5 MG TAB PO SCH (09:17)
[2018-11-07] MEDS: LACTOBACILLUS RHAMNOSUS GG 1 EACH CAP.SPRINK PO SCH (09:17)
[2018-11-07] MEDS: SPIRONOLACTONE 25 MG TAB PO SCH (09:17)
[2018-11-07] MEDS: FOLIC ACID 1 MG TABLET PO SCH (09:17)
[2018-11-07] MEDS: LISINOPRIL 5 MG TABLET PO SCH (09:17)
[2018-11-07] MEDS: FAMOTIDINE 20MG TAB 20 MG TAB PO SCH (09:17)
[2018-11-07] MEDS: FUROSEMIDE 40 MG TABLET PO SCH (09:17)
[2018-11-07] MEDS: ENOXAPARIN SODIUM 30 MG/0.3 ML SQ SCH (09:19)
[2018-11-07] MEDS ORDERED: DOXYCYCLINE 100MG+NS 250ML 250 ML IV SCH (11:15)
[2018-11-07 11:51] VITALS: BP 136/66
--- NOTE | 2018-11-07 11:55 | NUR ---
ROJAS CATHETER ROJAS CATHETER DC, TOLERATE WELL.
[2018-11-07 12:21] VITALS: BP 141/58
[2018-11-07 12:33] LABS: ALBUMIN 2.4 g/dL (3.5-5.0); BILIRUBIN,DIRECT 0.1 mg/dL (0.0-0.3); BILIRUBIN,TOTAL 0.4 mg/dL (0.2-1.0); CRP QUANTITATIVE 21.7 mg/L (0.00-9.0); TOTAL PROTEIN, SERUM 5.7 g/dL (6.0-8.3)
--- NOTE | 2018-11-07 13:52 | NUR ---
HOME HEALTH INFO PT WELL KNOWN TO THIS SORT OPERATIONS SUPERVISOR FROM LAST ADMIT [facility] DOES INFUSIONS AND DRESSING CHANGES PLEASE CALL REPORT TO [phone] FAX NUMBER is [phone] Addendum: 11/07/18 at 1354 by YAW BUTTERFIELD RN CM Amended: Links added.
[2018-11-07 16:16] VITALS: BP 128/61
[2018-11-07 19:59] VITALS: BP 134/57
[2018-11-08] VITALS: BP 135/58
[2018-11-08 04:00] VITALS: BP 130/88
[2018-11-08] MEDS: LEVOTHYROXINE 100 MCG TABLET PO SCH (05:31)
[2018-11-08] MEDS: MECLIZINE HCL 25 MG TABLET PO PRN ×2 (05:31→13:50)
[2018-11-08 06:03] LABS: BASOPHILS % (AUTO) 0.6 % (0.0-5.0); EOSINOPHILS % (AUTO) 1.4 % (0.0-8.0); HEMATOCRIT 33.3 % (36-48); MEAN CORPUSCULAR HEMOGLOBIN 32.9 pg (27.0-33.0); MEAN CORPUSCULAR HGB CONC 34.4 g/dL (32.0-36.0); MEAN CORPUSCULAR VOLUME 95.6 fL (79-99); MONOCYTES % (AUTO) 18.8 % (3.0-13.0); NEUTROPHILS % (AUTO) 54.2 % (40.0-77.0); NUCLEATED RED BLOOD CELLS 0.1 % (0.0-0.19); PLATELET COUNT (AUTO) 70 K/uL (130-400); RED BLOOD CELL COUNT(AUTO) 3.48 MIL/uL (4.00-5.50); RED CELL DISTRIBUTION WIDTH 16.7 % (11.0-15.5); WHITE BLOOD COUNT (AUTO) 4.4 K/uL (4.8-10.8)
[2018-11-08 06:10] LABS: CREATININE 1.7 mg/dL (0.5-1.5); POTASSIUM 4.4 mmol/L (3.5-5.1)
[2018-11-08] MEDS: INSULIN HUMULIN R 100 UNIT/ML 3ML SQ SCH ×3 (07:22→16:30)
[2018-11-08 07:51] VITALS: BP 134/59
[2018-11-08] MEDS: FERROUS FUMARATE 324 MG TABLET PO SCH (08:00)
[2018-11-08] MEDS ORDERED: PHARMACY COMMUNICATION MISC SCH ×2 (08:30→16:45)
[2018-11-08] MEDS: AMLODIPINE BESYLATE 5 MG TAB PO SCH (08:58)
[2018-11-08] MEDS: LACTOBACILLUS RHAMNOSUS GG 1 EACH CAP.SPRINK PO SCH (08:59)
[2018-11-08] MEDS: FUROSEMIDE 40 MG TABLET PO SCH (08:59)
[2018-11-08] MEDS: LISINOPRIL 5 MG TABLET PO SCH (08:59)
[2018-11-08] MEDS: SPIRONOLACTONE 25 MG TAB PO SCH ×2 (08:59→09:00)
[2018-11-08] MEDS: FAMOTIDINE 20MG TAB 20 MG TAB PO SCH (08:59)
[2018-11-08] MEDS: LINAGLIPTIN 5 MG TABLET PO SCH (08:59)
[2018-11-08] MEDS: ASPIRIN 325MG EC TAB 325 MG TABLET.DR PO SCH (09:00)
[2018-11-08] MEDS: FOLIC ACID 1 MG TABLET PO SCH (09:00)
[2018-11-08] MEDS: ENOXAPARIN SODIUM 30 MG/0.3 ML SQ SCH (09:02)
[2018-11-08] MEDS ORDERED: DOXYCYCLINE 100MG+NS 250ML 250 ML IV SCH (09:15)
[2018-11-08 11:13] VITALS: BP 152/98
[2018-11-08] MEDS ORDERED: MECL-111 PO (16:01)
--- NOTE | 2018-11-08 16:24 | NUR ---
SETTING UP AMBULANCE FAXED AUTH FORM TO [facility] CALL TO [facility]- SEE PREVIOUS NOTE- THEY NEED GARCIA AN ORDERFROM DR. WEINER CONTINUING THE SERVICES CALL TO DR. WEINER, ORDER RECD AND ENTERED, ADVISED PRIMARY RN, PAPERWORK FOR EMS STARTED. CALL TO [facility], THEY CONFIRMED THEY HAVE NOT AUTHROITY TO WIRE MESH KNITTER PTS FROM [facility]PITALS IN [facility]. ORDER RECD FOR EMS TRANSPORT. FAMILY STATES THEY WANT TO TAKE HOME BY PRIVATE CAR. BUT THEY HAVE NEER DONE SO BEFORE. ADVISED DAUGHTER THERE IS AN ORDER FOR EMS TRANSPORT SENT PAPERWORK TO [facility] AND [facility] TAGGED CHART FOR PRIMARY
[2018-11-08 16:52] VITALS: BP 121/71
[2018-11-08] MEDS ORDERED: ALPRAZOLAM 1 MG PO SCH (17:00)
[2018-11-08] MEDS ORDERED: COMPOUND PO NARCOTIC 1 EACH PO SCH (17:00)
--- NOTE | 2018-11-08 17:30 | NUR ---
Patient discharged in stable condition. Patient given discharge instruction on dizziness, declined MD appts. Pt stated appt are already made for PCP and Dr. Olson. Pateint states she is scheduled for surgery w/ Dr. Olson on 11/23/18. Report called to KADEEM Hernandez at [facility]. HH to continue Doxycyline 250 mg IV daily. Instructed Meclizine ordered to her pharmacy. Instructed to f/u with [facility] as indicated. Patient not making eye contact while giving instruction and told to sign dc paper work. Instructed to call 911 if SOB, chest pain or changes in mental status. waiting on EMS for transport to home.
[2018-11-09] MEDS ORDERED: DOXYCYCLINE 100MG+NS 250ML 250 ML IV SCH (09:00)
== END 2018-11-08 18:54 | disposition home health service (06) | DRG 111 ==
LOC: EDH 23:22 → OBSVTOIN 23:23 → EDHIP 23:23 → 4BH 11-06 05:40
PROVIDERS: ADMIT Family Medicine; ATTEND Family Medicine
DX: R42 Dizziness and giddiness (principal); E11.22 Type 2 diabetes mellitus with diabetic chronic kidney disease; I13.0 Hypertensive heart and chronic kidney disease with heart failure and stage 1 through stage 4 chronic kidney disease, or unspecified chronic kidney disease; N18.9 Chronic kidney disease, unspecified; E03.9 Hypothyroidism, unspecified
CPT/HCPCS: 36415; 70450; 70544; 71045; 72141; 73551; 80048; 80053; 80076; 81001; 82550; 82948; 83690; 83874; 84484; 85025; 85651; 86140; 93880; 93971; G0378; J1200; J1650; J1815; J2405; J3490; J7030

== ENCOUNTER 2019-01-10 13:55 | Emergency (ER) | payer MEDICAID ==
[~2019-01-10 13:55] MED LIST changes: -HYDR-2132 PO; -LEVO500T2 PO; +MECL-111 PO
[2019-01-10] MEDS ORDERED: MECLIZINE HCL 25 MG TABLET ONE (14:33)
[2019-01-10] MEDS ORDERED: LORAZEPAM 2 MG/ML 1 ML VIAL ONE (14:33)
[2019-01-10 14:35] LABS: BASOPHILS % (AUTO) 0.5 % (0.0-5.0); EOSINOPHILS % (AUTO) 0.9 % (0.0-8.0); HEMATOCRIT 33.8 % (36-48); MEAN CORPUSCULAR HEMOGLOBIN 30.8 pg (27.0-33.0); MEAN CORPUSCULAR HGB CONC 34.5 g/dL (32.0-36.0); MEAN CORPUSCULAR VOLUME 89.4 fL (79-99); MONOCYTES % (AUTO) 8.2 % (3.0-13.0); NEUTROPHILS % (AUTO) 71.4 % (40.0-77.0); PLATELET COUNT (AUTO) 151 K/uL (130-400); RED BLOOD CELL COUNT(AUTO) 3.78 MIL/uL (4.00-5.50); RED CELL DISTRIBUTION WIDTH 12.3 % (11.0-15.5); WHITE BLOOD COUNT (AUTO) 5.6 K/uL (4.8-10.8)
[2019-01-10] MEDS ORDERED: SODIUM CHLORIDE 0.9% 500ML 500 ML IV ONE (14:38)
[2019-01-10 14:42] LABS: CREATININE 1.6 mg/dL (0.5-1.5); POTASSIUM 4.5 mmol/L (3.5-5.1)
== END 2019-01-10 20:16 | disposition home or self-care (01) ==
LOC: EDH 13:55
DX: R42 Dizziness and giddiness (principal); R11.0 Nausea; I25.10 Atherosclerotic heart disease of native coronary artery without angina pectoris; E11.9 Type 2 diabetes mellitus without complications; E78.5 Hyperlipidemia, unspecified; I10 Essential (primary) hypertension; Z88.0 Allergy status to penicillin; Z88.8 Allergy status to other drugs, medicaments and biological substances; Z79.899 Other long term (current) drug therapy; Z98.890 Other specified postprocedural states
CPT/HCPCS: 36415; 70450; 80048; 84484; 85025; 93005; 96360; 96361 ×2; 99285; J7040; J2060

== ENCOUNTER 2019-03-01 09:33 | Emergency (ER) | payer MEDICAID ==
[~2019-03-01 09:33] MED LIST changes: -ALBU8.5H8 IH; -ALPR1TAB5 PO; +ASPI-555 PO; -ASPI-891 PO; +CHOL200059 PO; -ERGO500014 PO; -FERR324T10 PO; -FURO40TA5 PO; +FURO40TA7 PO; -LACT1CAP79 PO; -LISI5TAB PO; -MECL-111 PO; +MELA3TAB66 PO; -TRAM50TA4 PO
[2019-03-01 10:33] LABS: ABG BASE EXCESS -1.1 mmol/L (-2.0-3.0); ABG HCO3 21.5 mmol/L (21.0-28.0); ABG OXYGEN SATURATION 95.4 % (95.0-99.0); ABG PCO2 31 mmHg (32-45)
[2019-03-01 10:41] LABS: BASOPHILS % (AUTO) 0.4 % (0.0-5.0); EOSINOPHILS % (AUTO) 4.7 % (0.0-8.0); HEMATOCRIT 29.4 % (36-48); LYMPHOCYTES % (AUTO) 11.3 % (21.0-51.0); MEAN CORPUSCULAR HEMOGLOBIN 28.5 pg (27.0-33.0); MEAN CORPUSCULAR HGB CONC 32.3 g/dL (32.0-36.0); MEAN CORPUSCULAR VOLUME 88.3 fL (79-99); MONOCYTES % (AUTO) 7.1 % (3.0-13.0); NEUTROPHILS % (AUTO) 76.1 % (40.0-77.0); PLATELET COUNT (AUTO) 139 K/uL (130-400); RED BLOOD CELL COUNT(AUTO) 3.33 MIL/uL (4.00-5.50); RED CELL DISTRIBUTION WIDTH 13.2 % (11.0-15.5); WHITE BLOOD COUNT (AUTO) 5.5 K/uL (4.8-10.8)
[2019-03-01 10:47] LABS: APPEARANCE,URINE Clear (CLEAR); BILIRUBIN,URINE Negative (NEGATIVE); COLOR,URINE Yellow (YELLOW); GLUCOSE, URINE (UA) Negative (NEGATIVE); KETONES,URINE Negative (NEGATIVE); LEUKOCYTE ESTERASE ,URINE Small (NEGATIVE); NITRATE,URINE Negative (NEGATIVE); OCCULT BLOOD,URINE Trace (NEGATIVE); PROTEIN,URINE POS 2+ mg/dL (NEGATIVE); UROBILINOGEN,URINE 0.2 mg/dL (0.2-1.0)
[2019-03-01 10:53] LABS: BACTERIA,URINE Many /HPF (None Seen); RBC,URINE 0-1 /HPF (0-1); SQUAMOUS EPITHELIAL CELL,UR Few /HPF (0-2)
[2019-03-01 10:57] LABS: ALBUMIN 2.8 g/dL (3.5-5.0); BILIRUBIN,DIRECT 0.1 mg/dL (0.0-0.3); BILIRUBIN,TOTAL 0.7 mg/dL (0.2-1.0); CREATININE 1.7 mg/dL (0.5-1.5); POTASSIUM 5.1 mmol/L (3.5-5.1); TOTAL PROTEIN, SERUM 6.6 g/dL (6.0-8.3)
[2019-03-01 11:15] LABS: APPEARANCE,URINE Clear (CLEAR); BILIRUBIN,URINE Negative (NEGATIVE); COLOR,URINE Yellow (YELLOW); GLUCOSE, URINE (UA) Negative (NEGATIVE); KETONES,URINE Negative (NEGATIVE); LEUKOCYTE ESTERASE ,URINE Moderate (NEGATIVE); NITRATE,URINE Negative (NEGATIVE); OCCULT BLOOD,URINE Trace (NEGATIVE); PROTEIN,URINE POS 2+ mg/dL (NEGATIVE); UROBILINOGEN,URINE 0.2 mg/dL (0.2-1.0)
[2019-03-01 11:34] LABS: B-TYPE NATRIURETIC PEPTIDE 332 pg/mL (0-100)
[2019-03-01] MEDS ORDERED: FUROSEMIDE 10 MG/ML 4ML VIAL ONE (11:58)
[2019-03-01] MEDS ORDERED: LEVOFLOXACIN 500 MG/D5W 100 ML 100 ML ONE (11:58)
[2019-03-01 12:06] LABS: BACTERIA,URINE Many /HPF (None Seen); RBC,URINE 0-1 /HPF (0-1); SQUAMOUS EPITHELIAL CELL,UR Rare /HPF (0-2); WBC,URINE 0-1 /HPF (0-1)
== END 2019-03-01 18:06 | disposition home or self-care (01) ==
LOC: EDH 09:33
DX: R06.00 Dyspnea, unspecified (principal); I50.9 Heart failure, unspecified; I25.10 Atherosclerotic heart disease of native coronary artery without angina pectoris; F32.9 Major depressive disorder, single episode, unspecified; E11.9 Type 2 diabetes mellitus without complications; E78.5 Hyperlipidemia, unspecified; I10 Essential (primary) hypertension; Z88.0 Allergy status to penicillin; Z88.7 Allergy status to serum and vaccine
CPT/HCPCS: 36415; 36600; 71045; 71250; 80048; 80076; 81001 ×2; 82550; 82803; 83880; 84484; 85025; 87040; 87804 ×2; 93005; 96365; 96375; 99285; J1940; J1956

== ENCOUNTER 2019-03-13 13:31 | Emergency (ER) | payer MEDICAID ==
[2019-03-13 14:11] LABS: BASOPHILS % (AUTO) 0.4 % (0.0-5.0); EOSINOPHILS % (AUTO) 1.7 % (0.0-8.0); HEMATOCRIT 28.7 % (36-48); LYMPHOCYTES % (AUTO) 11.7 % (21.0-51.0); MEAN CORPUSCULAR HEMOGLOBIN 28.1 pg (27.0-33.0); MEAN CORPUSCULAR HGB CONC 32.1 g/dL (32.0-36.0); MEAN CORPUSCULAR VOLUME 87.8 fL (79-99); MONOCYTES % (AUTO) 10.3 % (3.0-13.0); NEUTROPHILS % (AUTO) 75.3 % (40.0-77.0); PLATELET COUNT (AUTO) 140 K/uL (130-400); RED BLOOD CELL COUNT(AUTO) 3.27 MIL/uL (4.00-5.50); RED CELL DISTRIBUTION WIDTH 13.2 % (11.0-15.5); WHITE BLOOD COUNT (AUTO) 5.2 K/uL (4.8-10.8)
[2019-03-13 14:21] LABS: INR 0.98 (0.85-1.15); PROTHROMBIN TIME 10.3 SEC (9.6-11.6)
[2019-03-13 14:23] LABS: CREATININE 2.1 mg/dL (0.5-1.5); POTASSIUM 4.6 mmol/L (3.5-5.1)
[2019-03-13 14:27] LABS: ALBUMIN 2.9 g/dL (3.5-5.0); BILIRUBIN,TOTAL 0.6 mg/dL (0.2-1.0)
[2019-03-13 14:37] LABS: B-TYPE NATRIURETIC PEPTIDE 599 pg/mL (0-100)
[2019-03-13 14:45] LABS: ABG BASE EXCESS -1.2 mmol/L (-2.0-3.0); ABG HCO3 22.1 mmol/L (21.0-28.0); ABG OXYGEN SATURATION 89.1 % (95.0-99.0); ABG PCO2 33 mmHg (32-45)
[2019-03-13 16:39] LABS: APPEARANCE,URINE Clear (CLEAR); BILIRUBIN,URINE Negative (NEGATIVE); COLOR,URINE Yellow (YELLOW); GLUCOSE, URINE (UA) Negative (NEGATIVE); KETONES,URINE Negative (NEGATIVE); LEUKOCYTE ESTERASE ,URINE Negative (NEGATIVE); NITRATE,URINE Negative (NEGATIVE); OCCULT BLOOD,URINE Trace (NEGATIVE); PROTEIN,URINE POS 2+ mg/dL (NEGATIVE); UROBILINOGEN,URINE 0.2 mg/dL (0.2-1.0)
[2019-03-13] MEDS ORDERED: IPRATROPIUM/ALBUTEROL SULFATE 3 ML SOLUTION IH ONE (16:46)
[2019-03-13 17:25] LABS: BACTERIA,URINE Few /HPF (None Seen); SQUAMOUS EPITHELIAL CELL,UR Moderate /HPF (0-2)
[2019-03-13 17:26] LABS: MUCUS,URINE Few LPF (None Seen); TRANSITIONAL EPI CELLS,URINE Few /HPF (None Seen)
== END 2019-03-13 17:20 | disposition home or self-care (01) ==
LOC: EDH 13:31
DX: R06.02 Shortness of breath (principal); I10 Essential (primary) hypertension; E11.65 Type 2 diabetes mellitus with hyperglycemia; I25.10 Atherosclerotic heart disease of native coronary artery without angina pectoris; F32.9 Major depressive disorder, single episode, unspecified; E78.5 Hyperlipidemia, unspecified; Z88.0 Allergy status to penicillin; Z88.1 Allergy status to other antibiotic agents; Z88.7 Allergy status to serum and vaccine
CPT/HCPCS: 36415; 36600; 71045; 80053; 81001; 82550; 82803; 83880; 84484; 85025; 85610; 85730; 87040; 87804; 93005; 94640

== ENCOUNTER 2019-04-17 14:52 | Inpatient (IN) | payer MEDICAID ==
[~2019-04-17] VITALS: Ht 160 cm; Wt 141.1 kg
[~2019-04-17 14:52] MED LIST changes: +MELA3TAB41 PO; -MELA3TAB66 PO
[2019-04-17 15:01] LABS: ABG BASE EXCESS -8.9 mmol/L (-2.0-3.0); ABG HCO3 15.4 mmol/L (21.0-28.0); ABG OXYGEN SATURATION 96.1 % (95.0-99.0); ABG PCO2 28 mmHg (32-45)
[2019-04-17] MEDS ORDERED: CALCIUM GLUCONATE 1 GM/10 ML VIAL IV ONE (15:16)
[2019-04-17] MEDS ORDERED: SODIUM POLYSTYRENE SULFONATE 15 GM/60 ML ML ONE (15:16)
[2019-04-17] MEDS ORDERED: DEXTROSE 50%-WATER 50 ML DISP.SYRIN IV ONE (15:17)
[2019-04-17] MEDS ORDERED: SODIUM CHLORIDE 0.9% 100 ML IV ONE (15:17)
[2019-04-17] MEDS ORDERED: INSULIN HUMULIN R 100 UNIT/ML 3ML ONE (15:17)
[2019-04-17 15:18] LABS: BASOPHILS % (AUTO) 0.2 % (0.0-5.0); EOSINOPHILS % (AUTO) 0.3 % (0.0-8.0); HEMATOCRIT 25.9 % (36-48); LYMPHOCYTES % (AUTO) 6.2 % (21.0-51.0); MEAN CORPUSCULAR HEMOGLOBIN 26.7 pg (27.0-33.0); MEAN CORPUSCULAR HGB CONC 31.3 g/dL (32.0-36.0); MEAN CORPUSCULAR VOLUME 85.5 fL (79-99); MONOCYTES % (AUTO) 5.5 % (3.0-13.0); NEUTROPHILS % (AUTO) 87.3 % (40.0-77.0); PLATELET COUNT (AUTO) 176 K/uL (130-400); RED BLOOD CELL COUNT(AUTO) 3.03 MIL/uL (4.00-5.50); RED CELL DISTRIBUTION WIDTH 13.9 % (11.0-15.5); WHITE BLOOD COUNT (AUTO) 8.8 K/uL (4.8-10.8)
[2019-04-17] MEDS ORDERED: ALBUTEROL SULFATE 0.083% 2.5 MG/3 ML INH IH ONE ×4 (15:22→15:23)
[2019-04-17 15:42] LABS: ALBUMIN 3.1 g/dL (3.5-5.0); BILIRUBIN,TOTAL 0.8 mg/dL (0.2-1.0); CREATININE 4.7 mg/dL (0.5-1.5); POTASSIUM 5.5 mmol/L (3.5-5.1); TOTAL PROTEIN, SERUM 7.5 g/dL (6.0-8.3)
[2019-04-17 15:43] LABS: B-TYPE NATRIURETIC PEPTIDE 1550 pg/mL (0-100)
[2019-04-17 16:47] LABS: APPEARANCE,URINE Turbid (CLEAR); BILIRUBIN,URINE Small (NEGATIVE); COLOR,URINE Dark Yellow (YELLOW); GLUCOSE, URINE (UA) Negative (NEGATIVE); KETONES,URINE Negative (NEGATIVE); LEUKOCYTE ESTERASE ,URINE Negative (NEGATIVE); NITRATE,URINE Negative (NEGATIVE); OCCULT BLOOD,URINE Negative (NEGATIVE); PROTEIN,URINE Trace mg/dL (NEGATIVE)
[2019-04-17] MEDS ORDERED: FUROSEMIDE 10 MG/ML 4ML VIAL ONE (17:01)
[2019-04-17 17:08] LABS: AMORPHOUS SEDIMENT,UR Many /LPF (None Seen); BACTERIA,URINE Few /HPF (None Seen); RBC,URINE None Seen /HPF (0-1); SQUAMOUS EPITHELIAL CELL,UR None Seen /HPF (0-2); WBC,URINE 0-1 /HPF (0-1)
[2019-04-17] MEDS ORDERED: GLYCERIN PEDI SUPP.RECT PR ONE (18:01)
[2019-04-17] MEDS ORDERED: GLUCAGON 1MG KIT 1 MG ML IM PRN (18:15)
[2019-04-17] MEDS ORDERED: DEXTROSE 50%-WATER 50 ML DISP.SYRIN IV PRN (18:15)
[2019-04-17] MEDS ORDERED: SODIUM CHLORIDE 0.9% 1000ML 1,000 ML IV ONE (20:19)
[2019-04-17] MEDS ORDERED: CEFTRIAXONE SODIUM 1 GM ONE (20:21)
[2019-04-17] MEDS ORDERED: SODIUM CHLORIDE 0.9% 50 ML IV ONE (20:21)
[2019-04-18] MEDS ORDERED: SODIUM CHLORIDE 0.9% 1000ML 1,000 ML IV ONE (01:57)
[2019-04-18 05:23] LABS: HEMATOCRIT 25.3 % (36-48); MEAN CORPUSCULAR HEMOGLOBIN 26.4 pg (27.0-33.0); MEAN CORPUSCULAR HGB CONC 31.2 g/dL (32.0-36.0); MEAN CORPUSCULAR VOLUME 84.6 fL (79-99); PLATELET COUNT (AUTO) 151 K/uL (130-400); RED BLOOD CELL COUNT(AUTO) 2.99 MIL/uL (4.00-5.50); RED CELL DISTRIBUTION WIDTH 13.8 % (11.0-15.5); WHITE BLOOD COUNT (AUTO) 7.1 K/uL (4.8-10.8)
[2019-04-18 05:36] LABS: BASOPHILS % (MANUAL) 2 % (0-2); EOSINOPHILS % (MANUAL) 1 % (1-6); LYMPHOCYTES % (MANUAL) 9 % (22-44); MONOCYTES % (MANUAL) 7 % (2-9); SEGMENTED NEUTROPHILS % 81 % (40-70)
[2019-04-18 05:41] LABS: MAN.DIFF COMMENT-IMPRESSION MANUAL DIFFERENTIAL; PLATELET MORPHOLOGY COMMENT ADEQUATE
[2019-04-18 05:46] LABS: PHOSPHORUS 6.5 mg/dL (2.5-4.9)
[2019-04-18 06:17] LABS: % IRON SATURATION 3.8 % (22-44)
[2019-04-18] MEDS: SODIUM CHLORIDE 0.9% 1000ML 1,000 ML IV SCH ×3 (07:20→19:47)
[2019-04-18] MEDS: INSULIN R PO SS1 SQ SCH ×4 (07:30→20:57)
[2019-04-18] MEDS: FUROSEMIDE 10 MG/ML 4ML VIAL IVP SCH ×2 (09:00→19:47)
[2019-04-18] MEDS: ENOXAPARIN SODIUM 30 MG/0.3 ML SQ SCH (09:00)
[2019-04-18] MEDS ORDERED: ENOXAPARIN SODIUM 30 MG/0.3 ML SQ ONE (09:39)
[2019-04-18] MEDS: NYSTATIN 100000 UNIT/ML 5ML UDCUP PO SCH ×2 (10:00→17:28)
[2019-04-18] MEDS ORDERED: TRAM50TA4 PO (11:14)
[2019-04-18] MEDS ORDERED: FURO80TA3 PO (11:14)
[2019-04-18] MEDS ORDERED: ONDA8TAB12 PO (11:14)
[2019-04-18] MEDS ORDERED: CINNAMON EXTRACT (11:14)
[2019-04-18] MEDS ORDERED: MAGIC240 MM (11:14)
[2019-04-18] MEDS ORDERED: EPOETIN ALFA 10,000 UNIT/ML VIAL SQ SCH (13:00)
[2019-04-18] MEDS ORDERED: FUROSEMIDE 10 MG/ML 4ML VIAL ONE (13:10)
[2019-04-18] MEDS ORDERED: COMPOUND IV MISC 1 EACH IVSOLN MISC PRN (13:30)
[2019-04-18] MEDS ORDERED: PHARMACY COMMUNICATION MISC SCH (14:45)
[2019-04-18 14:50] VITALS: BP 168/53
--- NOTE | 2019-04-18 14:50 | NUR ---
ADMISSION ,FROM ER. PER SERVICES OF DR. MELGOZA PT POSITION RESTING ON HER ABD FACE DOWN . PER PT AND FAMILY PT IS ONLY ABLE TO REST IN THAT POSITION, PT FACE TURNED TO HER LT SIDE ON ROOM AIR ,PT TOOK OFF HER O2 VIA NC . PT ALSO CAME IN WITH A ROJAS CATHETER SECURE TO HER LT THIGH, WITH A URINE FLOW OF DK YELLOW , ROJAS CATHETER OFF THE FLOOR, PT HX OF HAVING SURGERY TO HER LT LEG . MOST SWOLLEN THAN THE RT LEG, PT IS NOT ABLE TO MOVE AT THIS POINT AND WANTED TO StAY THE WAY SHE IS RESTING. R ORIENTATED TO HER ADMISSION PLAN OF CARE. PT ALSO STATED THAT HER MOUTH HURTS DUE TO THRUSH . MEDICATION TO BE GIVEN ORDER NOTED INSIDE HER MOUTH UNEVEN OUTER AREA OF TOUGUE , DOES NOT REMEMBER IF SHE BIT IT BEFORE, ENCOUARGE TO MOVE ON HER SIDE BUT REFUSE TO DO SO. UNABLE TO PLACE TELE MONITOR STATED THAT SHE WANTS TO WAIT. . CALL LIGHT IN REACH,,
[2019-04-18 16:00] VITALS: BP 138/62
--- NOTE | 2019-04-18 17:17 | NUR ---
INITIAL Patient lives with spouse, Addi Salmon, [phone]. No home health but does have PHC with Med Team X 30 hours a week. DME: walker with seat, wheelchair, 3 in 1 BSC, nebulizer, O2 portable only. As per spouse, Dr. Ranjan Mcgarry had ordered O2 concentrator thru [facility] [place] but patient has not received it yet. PCP is Dr. Rosales. Pharmacy is [facility] in [place]. Patient was last hospitalized from 02/08/2019 - 02/11/2019 but left Against Medical Advice. DCP is home. Addendum: 04/18/19 at 1720 by CHRISTIE ALLRED Amended: Links added.
[2019-04-18 19:45] VITALS: BP 129/61
--- NOTE | 2019-04-18 19:54 | NUR ---
Nursing Note PT refuses to turn on back or side. Pt stated "this is how I sleep". I spoke with the pt and family member about the telemetry. Pt didn't want to turn over to have telemetry put on. Pt family member signed refusal form since pt didn't want to move.
[2019-04-18 23:58] VITALS: BP 146/63
[2019-04-19] MEDS: NYSTATIN 100000 UNIT/ML 5ML UDCUP PO SCH ×3 (01:16→18:16)
--- NOTE | 2019-04-19 02:00 | NUR ---
Nursing Note Medication -Nystatin- not given to pt because I saw pt take home medication of nystatin. Unsure of other home medications the pt is taking because she wouldn't tell me but pt has medications in pill bag that was given to her by her . Pt also offered to be cleaned up and moved by me and HOUSECLEANER FLOOR May but pt refused.
[2019-04-19 03:50] VITALS: BP 125/56
[2019-04-19 05:57] LABS: HEMATOCRIT 25.9 % (36-48); MEAN CORPUSCULAR HEMOGLOBIN 26.4 pg (27.0-33.0); MEAN CORPUSCULAR HGB CONC 30.9 g/dL (32.0-36.0); MEAN CORPUSCULAR VOLUME 85.5 fL (79-99); PLATELET COUNT (AUTO) 161 K/uL (130-400); RED BLOOD CELL COUNT(AUTO) 3.03 MIL/uL (4.00-5.50); WHITE BLOOD COUNT (AUTO) 8.6 K/uL (4.8-10.8)
[2019-04-19 06:09] LABS: INR 1.12 (0.85-1.15); PARTIAL THROMBOPLASTIN TIME 29.4 SEC (26.3-35.5)
[2019-04-19 06:23] LABS: CREATININE 5.2 mg/dL (0.5-1.5); PHOSPHORUS 6.8 mg/dL (2.5-4.9)
[2019-04-19] MEDS: INSULIN R PO SS1 SQ SCH ×4 (06:23→21:00)
--- NOTE | 2019-04-19 06:49 | NUR ---
Nursing Note-Paged Paged about lab values, pending call back
[2019-04-19 07:17] LABS: EOSINOPHILS % (MANUAL) 1 % (1-6); LYMPHOCYTES % (MANUAL) 4 % (22-44); MAN.DIFF COMMENT-IMPRESSION MANUAL DIFFERENTIAL; MONOCYTES % (MANUAL) 4 % (2-9); SEGMENTED NEUTROPHILS % 91 % (40-70)
[2019-04-19 07:18] LABS: PLATELET MORPHOLOGY COMMENT ADEQUATE
--- NOTE | 2019-04-19 07:42 | NUR ---
Nursing Note made aware of lab values, Stated he would come by later
[2019-04-19] MEDS: FUROSEMIDE 10 MG/ML 4ML VIAL IVP SCH (08:13)
[2019-04-19] MEDS: SODIUM CHLORIDE 0.9% 1000ML 1,000 ML IV SCH ×2 (08:13→22:54)
[2019-04-19] MEDS: ENOXAPARIN SODIUM 30 MG/0.3 ML SQ SCH (08:13)
[2019-04-19 08:16] VITALS: BP 152/56
[2019-04-19] MEDS: IRON SUCROSE COMPLEX 100 MG in SODIUM CHLORIDE 0.9% 50 ML IV SCH (09:00)
[2019-04-19 12:01] VITALS: BP 150/61
[2019-04-19 16:44] VITALS: BP 131/66
[2019-04-19 20:00] VITALS: BP 152/63
[2019-04-20 00:09] VITALS: BP 117/67
--- NOTE | 2019-04-20 01:05 | NUR ---
Nursing Note Pt stating she wants to leave. I informed her and she can leave AMA. stated he doesn't have a car to leave in. They don't want to sign the AMA form.
[2019-04-20] MEDS: NYSTATIN 100000 UNIT/ML 5ML UDCUP PO SCH ×3 (01:25→16:53)
--- NOTE | 2019-04-20 02:24 | NUR ---
Nursing Note Pt pulled out IV. Pt stated she wants to leave because it is too loud and she isn't able to sleep. stated they don't have a ride to leave.
[2019-04-20 04:00] VITALS: BP 135/68
[2019-04-20 04:53] LABS: HEMATOCRIT 26.2 % (36-48); MEAN CORPUSCULAR HGB CONC 30.5 g/dL (32.0-36.0); MEAN CORPUSCULAR VOLUME 85.1 fL (79-99); PLATELET COUNT (AUTO) 119 K/uL (130-400); RED BLOOD CELL COUNT(AUTO) 3.08 MIL/uL (4.00-5.50); RED CELL DISTRIBUTION WIDTH 13.8 % (11.0-15.5); WHITE BLOOD COUNT (AUTO) 8.2 K/uL (4.8-10.8)
--- NOTE | 2019-04-20 05:14 | NUR ---
Nursing Note Paged because pt wants to leave and pt is having an anxiety attack. Pending call back
[2019-04-20 05:17] LABS: POTASSIUM 5.2 mmol/L (3.5-5.1)
--- NOTE | 2019-04-20 05:24 | NUR ---
Nursing Note Dr. Cassiyd called back, informed him the pt is having anxiety, pt pulled out IV and pt stating she wants to leave. stated she can leave AMA.
[2019-04-20] MEDS: INSULIN R PO SS1 SQ SCH ×4 (06:29→21:32)
[2019-04-20 07:28] LABS: LYMPHOCYTES % (MANUAL) 1 % (22-44); MAN.DIFF COMMENT-IMPRESSION MANUAL DIFFERENTIAL; MONOCYTES % (MANUAL) 8 % (2-9); SEGMENTED NEUTROPHILS % 91 % (40-70)
[2019-04-20 07:29] LABS: PLATELET MORPHOLOGY COMMENT SLIGHTLY DECREASED
[2019-04-20] MEDS: ENOXAPARIN SODIUM 30 MG/0.3 ML SQ SCH (08:18)
[2019-04-20] MEDS: IRON SUCROSE COMPLEX 100 MG in SODIUM CHLORIDE 0.9% 50 ML IV SCH (08:27)
[2019-04-20 08:29] VITALS: BP 143/66
[2019-04-20] MEDS ORDERED: PANTOPRAZOLE SODIUM 40 MG TABLET.DR PO SCH (09:15)
--- NOTE | 2019-04-20 10:00 | NUR ---
DR MELGOZA PAGED REGARDING PT QUESTIONS. PENDING CB
[2019-04-20] MEDS ORDERED: PHARMACY COMMUNICATION MISC SCH (11:15)
[2019-04-20] MEDS ORDERED: LIDOCAINE HCL 2% VISCOUS 30 ML, MAG HYDROX/AL HYDROX/SIMETH 30 ML, DICYCLOMINE HCL 20 MG PO PRN ×3 (11:30)
[2019-04-20 11:31] VITALS: BP 133/56
[2019-04-20] MEDS: LIDOCAINE HCL 2% VISCOUS 30 ML, MAG HYDROX/AL HYDROX/SIMETH 30 ML, DICYCLOMINE HCL 20 MG PO SCH ×6 (12:30→20:47)
[2019-04-20] MEDS ORDERED: COMPOUND PO MISCELLANEOUS 1 EACH MISC MISC PRN (12:30)
[2019-04-20] MEDS: METOCLOPRAMIDE 10 MG TABLET PO SCH ×3 (12:32→20:48)
[2019-04-20] MEDS: SODIUM CHLORIDE 0.9% 1000ML 1,000 ML IV SCH (12:40)
[2019-04-20 16:56] VITALS: BP 144/58
[2019-04-20 19:51] VITALS: BP 139/60
[2019-04-21 00:20] VITALS: BP 145/55
[2019-04-21] MEDS: SODIUM CHLORIDE 0.9% 1000ML 1,000 ML IV SCH (01:12)
[2019-04-21] MEDS: NYSTATIN 100000 UNIT/ML 5ML UDCUP PO SCH ×3 (02:57→18:00)
[2019-04-21] MEDS: LIDOCAINE HCL 2% VISCOUS 30 ML, MAG HYDROX/AL HYDROX/SIMETH 30 ML, DICYCLOMINE HCL 20 MG PO SCH ×6 (03:51→12:30)
[2019-04-21 04:00] VITALS: BP 142/69
[2019-04-21 05:42] LABS: HEMATOCRIT 25.5 % (36-48); MEAN CORPUSCULAR HEMOGLOBIN 26.2 pg (27.0-33.0); MEAN CORPUSCULAR VOLUME 84.7 fL (79-99); PLATELET COUNT (AUTO) 118 K/uL (130-400); RED BLOOD CELL COUNT(AUTO) 3.01 MIL/uL (4.00-5.50); RED CELL DISTRIBUTION WIDTH 13.9 % (11.0-15.5); WHITE BLOOD COUNT (AUTO) 7.4 K/uL (4.8-10.8)
[2019-04-21 05:56] LABS: PHOSPHORUS 6.1 mg/dL (2.5-4.9)
[2019-04-21] MEDS: INSULIN R PO SS1 SQ SCH ×3 (05:59→16:30)
[2019-04-21] MEDS: METOCLOPRAMIDE 10 MG TABLET PO SCH ×3 (06:51→16:30)
[2019-04-21 06:54] LABS: LYMPHOCYTES % (MANUAL) 8 % (22-44); MAN.DIFF COMMENT-IMPRESSION MANUAL DIFFERENTIAL; MONOCYTES % (MANUAL) 4 % (2-9); SEGMENTED NEUTROPHILS % 88 % (40-70)
[2019-04-21 06:55] LABS: PLATELET MORPHOLOGY COMMENT SLIGHTLY DECREASED
[2019-04-21 08:00] VITALS: BP 142/68
[2019-04-21] MEDS ORDERED: PANTOPRAZOLE SODIUM 40 MG TABLET.DR PO SCH (09:00)
[2019-04-21] MEDS: IRON SUCROSE COMPLEX 100 MG in SODIUM CHLORIDE 0.9% 50 ML IV SCH (09:04)
[2019-04-21] MEDS: ENOXAPARIN SODIUM 30 MG/0.3 ML SQ SCH (09:05)
[2019-04-21 11:52] VITALS: BP 142/58
[2019-04-21 16:00] VITALS: BP 134/60
[2019-04-21 19:05] VITALS: BP 150/59
--- NOTE | 2019-04-21 19:35 | NUR ---
FAMILY DECISION FOR PT DISPOSITION / DAUGHTER ADAMANTLY DECIDING TO HAVE PT GO HOME AMA, DESPITE THOROUGH DISCUSSION AND EXPLANATION FOR PT TO STAY FOR HER OWN BENEFIT.AMA DOCUMENT SIGNED BY AND WITNESSED, ROJAS NARAYAN DCD PER PT A ND FAMILY DEMAND.DCD ASEPTICALLY ,CATH INTACT, TOLERATED . PIV TO RIGHT FA DCD ASEPTICALLY WELL , CATH COMPLETELY OUT , GOOD HEMOSTASIS , TOLERATED WELL. PT WHEELED TO LOBBY BY DOROTHY RUIZ ACCOMPANIED BY FAMILY, NO APPARENT DISTRESS. Addendum: 04/22/19 at 0323 by NANDO AVILA RN RN Amended: Links added.
--- NOTE | 2019-04-21 19:46 | NUR ---
NOTIFICATION DR Yoanna MELGOZA INFORMED OF PT DEPARTURE AMMaycol,NO NEW ORDERS Addendum: 04/22/19 at 0324 by NANDO AVILA RN RN Amended: Links added.
== END 2019-04-21 19:46 | disposition left against medical advice (07) | DRG 469 ==
LOC: EDH 14:52 → UNDOADMIN 14:53 → EDHIP 14:53 → 4DH 04-18 13:40
PROVIDERS: ADMIT Internal Medicine Nephrology; ATTEND Internal Medicine Nephrology
DX: N17.9 Acute kidney failure, unspecified (principal); E11.22 Type 2 diabetes mellitus with diabetic chronic kidney disease; I13.0 Hypertensive heart and chronic kidney disease with heart failure and stage 1 through stage 4 chronic kidney disease, or unspecified chronic kidney disease; I50.9 Heart failure, unspecified; E86.9 Volume depletion, unspecified; D64.9 Anemia, unspecified; N18.9 Chronic kidney disease, unspecified; Z91.19 Patient's noncompliance with other medical treatment and regimen; R13.10 Dysphagia, unspecified; Z90.49 Acquired absence of other specified parts of digestive tract; Z98.891 History of uterine scar from previous surgery; Z88.1 Allergy status to other antibiotic agents; Z88.0 Allergy status to penicillin; Z88.7 Allergy status to serum and vaccine; Z88.8 Allergy status to other drugs, medicaments and biological substances
CPT/HCPCS: 36415; 36600; 71045; 80048; 80053; 81001; 82435; 82550; 82803; 82947; 82948; 83540; 83550; 83605; 83880; 84100; 84132; 84295; 84300; 84484; 85018; 85025; 85610; 85730; 87040; 93005; 94640; 99291; G0378; J0610; J0696; J0885; J1650; J1756; J1815; J1940; J7030; J7070

== ENCOUNTER 2019-05-16 12:31 | Emergency (ER) | payer MEDICAID ==
[~2019-05-16 12:31] MED LIST changes: +AMLO-258 PO; -AMLO10TA7 PO; -ASPI-555 PO; +CINNAMON EXTRACT; -FURO40TA7 PO; +FURO80TA3 PO; +MAGIC240 MM; -MELA3TAB41 PO; +ONDA8TAB12 PO; +TRAM50TA4 PO
[2019-05-16 14:32] LABS: BASOPHILS % (AUTO) 0.3 % (0.0-5.0); EOSINOPHILS % (AUTO) 1.8 % (0.0-8.0); HEMATOCRIT 30.6 % (36-48); LYMPHOCYTES % (AUTO) 16.2 % (21.0-51.0); MEAN CORPUSCULAR HEMOGLOBIN 28.4 pg (27.0-33.0); MEAN CORPUSCULAR HGB CONC 30.4 g/dL (32.0-36.0); MEAN CORPUSCULAR VOLUME 93.3 fL (79-99); MONOCYTES % (AUTO) 7.2 % (3.0-13.0); NEUTROPHILS % (AUTO) 74.2 % (40.0-77.0); PLATELET COUNT (AUTO) 127 K/uL (130-400); RED BLOOD CELL COUNT(AUTO) 3.28 MIL/uL (4.00-5.50); RED CELL DISTRIBUTION WIDTH 19.8 % (11.0-15.5); WHITE BLOOD COUNT (AUTO) 3.3 K/uL (4.8-10.8)
[2019-05-16 14:44] LABS: CREATININE 2.1 mg/dL (0.5-1.5); POTASSIUM 3.8 mmol/L (3.5-5.1)
[2019-05-16 14:46] LABS: INR 1.11 (0.85-1.15); PARTIAL THROMBOPLASTIN TIME 30.1 SEC (26.3-35.5); PROTHROMBIN TIME 11.9 SEC (9.6-11.6)
[2019-05-16 14:48] LABS: ALBUMIN 2.4 g/dL (3.5-5.0); BILIRUBIN,TOTAL 0.5 mg/dL (0.2-1.0); TOTAL PROTEIN, SERUM 5.7 g/dL (6.0-8.3)
== END 2019-05-16 16:48 | disposition home or self-care (01) ==
LOC: EDH 12:31
DX: T82.898A Other specified complication of vascular prosthetic devices, implants and grafts, initial encounter (principal); I12.9 Hypertensive chronic kidney disease with stage 1 through stage 4 chronic kidney disease, or unspecified chronic kidney disease; E11.22 Type 2 diabetes mellitus with diabetic chronic kidney disease; N18.9 Chronic kidney disease, unspecified; I25.10 Atherosclerotic heart disease of native coronary artery without angina pectoris; E78.5 Hyperlipidemia, unspecified; Z88.0 Allergy status to penicillin; Z88.7 Allergy status to serum and vaccine; Z90.49 Acquired absence of other specified parts of digestive tract; Z98.890 Other specified postprocedural states; Z88.8 Allergy status to other drugs, medicaments and biological substances
CPT/HCPCS: 36415; 71045; 80053; 85025; 85610; 85730

== ENCOUNTER 2019-09-06 17:40 | Inpatient (IN) | payer MEDICAID ==
[~2019-09-06 17:40] MED LIST changes: -AMLO-258 PO; +AMLO10TA7 PO
[2019-09-06 18:35] LABS: BASOPHILS % (AUTO) 0.2 % (0.0-5.0); EOSINOPHILS % (AUTO) 0.7 % (0.0-8.0); HEMATOCRIT 37.3 % (36-48); LYMPHOCYTES % (AUTO) 6.8 % (21.0-51.0); MEAN CORPUSCULAR HEMOGLOBIN 30.7 pg (27.0-33.0); MEAN CORPUSCULAR HGB CONC 30.8 g/dL (32.0-36.0); MEAN CORPUSCULAR VOLUME 99.5 fL (79-99); MONOCYTES % (AUTO) 7.8 % (3.0-13.0); NEUTROPHILS % (AUTO) 84.2 % (40.0-77.0); PLATELET COUNT (AUTO) 113 K/uL (130-400); RED BLOOD CELL COUNT(AUTO) 3.75 MIL/uL (4.00-5.50); RED CELL DISTRIBUTION WIDTH 17.5 % (11.0-15.5)
[2019-09-06 18:49] LABS: INR 1.13 (0.85-1.15); PARTIAL THROMBOPLASTIN TIME 29.9 SEC (26.3-35.5); PROTHROMBIN TIME 12.1 SEC (9.6-11.6)
[2019-09-06 18:56] LABS: B-TYPE NATRIURETIC PEPTIDE 3190 pg/mL (0-100)
[2019-09-06 18:57] LABS: CREATININE 2.6 mg/dL (0.5-1.5)
[2019-09-06 19:02] LABS: ALBUMIN 2.9 g/dL (3.5-5.0); BILIRUBIN,TOTAL 0.8 mg/dL (0.2-1.0); TOTAL PROTEIN, SERUM 7.4 g/dL (6.0-8.3)
[2019-09-06] MEDS ORDERED: GLUCAGON 1MG KIT 1 MG ML IM PRN (22:45)
[2019-09-06] MEDS ORDERED: ONDANSETRON HCL 4 MG/2 ML VIAL IVP PRN (22:45)
[2019-09-06] MEDS ORDERED: DEXTROSE 50%-WATER 50 ML DISP.SYRIN IV PRN (22:45)
[2019-09-06] MEDS ORDERED: FUROSEMIDE 10 MG/ML 2ML VIAL ONE (23:28)
[2019-09-07 05:52] LABS: BASOPHILS % (AUTO) 0.3 % (0.0-5.0); EOSINOPHILS % (AUTO) 0.6 % (0.0-8.0); HEMATOCRIT 38.4 % (36-48); LYMPHOCYTES % (AUTO) 5.8 % (21.0-51.0); MEAN CORPUSCULAR HEMOGLOBIN 31.5 pg (27.0-33.0); MEAN CORPUSCULAR HGB CONC 31.8 g/dL (32.0-36.0); MEAN CORPUSCULAR VOLUME 99.2 fL (79-99); MONOCYTES % (AUTO) 6.9 % (3.0-13.0); PLATELET COUNT (AUTO) 115 K/uL (130-400); RED BLOOD CELL COUNT(AUTO) 3.87 MIL/uL (4.00-5.50); RED CELL DISTRIBUTION WIDTH 17.7 % (11.0-15.5); WHITE BLOOD COUNT (AUTO) 6.9 K/uL (4.8-10.8)
[2019-09-07 06:17] LABS: BILIRUBIN,TOTAL 0.9 mg/dL (0.2-1.0); CREATININE 2.5 mg/dL (0.5-1.5); MAGNESIUM 2.4 mg/dL (1.80-2.40); PHOSPHORUS 4.8 mg/dL (2.5-4.9); POTASSIUM 4.2 mmol/L (3.5-5.1); THYROID STIMULATING HORMONE 44.56 uIU/mL (0.36-3.74); TOTAL PROTEIN, SERUM 7.4 g/dL (6.0-8.3)
[2019-09-07] MEDS ORDERED: HUMALOG PO SS1/2 SQ SCH (07:30)
[2019-09-07] MEDS: HUMALOG PO SS1 SQ SCH ×2 (07:30→11:30)
[2019-09-07] MEDS ORDERED: HUMALOG PO SS2 SQ SCH (07:30)
[2019-09-07] MEDS ORDERED: FUROSEMIDE 10 MG/ML 4ML VIAL ONE (08:46)
[2019-09-07] MEDS ORDERED: ENOXAPARIN SODIUM 30 MG/0.3 ML SQ ONE (08:47)
[2019-09-07] MEDS: PANTOPRAZOLE 40 MG/VIAL IVP SCH (09:00)
[2019-09-07] MEDS: FUROSEMIDE 10 MG/ML 4ML VIAL IVP SCH ×2 (09:00→21:00)
[2019-09-07] MEDS: ENOXAPARIN SODIUM 30 MG/0.3 ML SQ SCH (09:00)
[2019-09-07 12:30] VITALS: BP 125/68
[2019-09-07 13:00] VITALS: BP 141/66
[2019-09-07 15:45] VITALS: BP 143/69
[2019-09-07] MEDS: INSULIN R PO SS1/2 SQ SCH ×2 (16:30→21:00)
[2019-09-07 16:48] LABS: APPEARANCE,URINE Turbid (CLEAR); BILIRUBIN,URINE Negative (NEGATIVE); COLOR,URINE Dark Yellow (YELLOW); GLUCOSE, URINE (UA) Negative (NEGATIVE); KETONES,URINE Negative (NEGATIVE); LEUKOCYTE ESTERASE ,URINE Large (NEGATIVE); NITRATE,URINE Negative (NEGATIVE); OCCULT BLOOD,URINE Large (NEGATIVE); PROTEIN,URINE 300 mg/dL (NEGATIVE)
[2019-09-07 17:08] LABS: BACTERIA,URINE Moderate /HPF (None Seen); MUCUS,URINE Few LPF (None Seen); RBC,URINE 26-50 /HPF (0-1); SQUAMOUS EPITHELIAL CELL,UR Moderate /HPF (0-2); WBC,URINE 51-100 /HPF (0-1)
[2019-09-07] MEDS ORDERED: METO25TA6 PO (19:16)
[2019-09-07 20:03] VITALS: BP 126/60
[2019-09-08 00:06] VITALS: BP 126/69
[2019-09-08 04:24] VITALS: BP 134/70
[2019-09-08] MEDS: INSULIN R PO SS1/2 SQ SCH ×4 (06:28→21:00)
[2019-09-08 07:09] LABS: BASOPHILS % (AUTO) 0.2 % (0.0-5.0); EOSINOPHILS % (AUTO) 1.7 % (0.0-8.0); HEMATOCRIT 35.4 % (36-48); MEAN CORPUSCULAR HEMOGLOBIN 31.3 pg (27.0-33.0); MEAN CORPUSCULAR HGB CONC 31.4 g/dL (32.0-36.0); MEAN CORPUSCULAR VOLUME 99.7 fL (79-99); NEUTROPHILS % (AUTO) 80.9 % (40.0-77.0); PLATELET COUNT (AUTO) 102 K/uL (130-400); RED BLOOD CELL COUNT(AUTO) 3.55 MIL/uL (4.00-5.50); RED CELL DISTRIBUTION WIDTH 17.5 % (11.0-15.5); WHITE BLOOD COUNT (AUTO) 5.4 K/uL (4.8-10.8)
[2019-09-08 07:24] LABS: CREATININE 2.8 mg/dL (0.5-1.5); MAGNESIUM 2.4 mg/dL (1.80-2.40); PHOSPHORUS 5.1 mg/dL (2.5-4.9); POTASSIUM 4.2 mmol/L (3.5-5.1)
[2019-09-08 07:50] VITALS: BP 134/78
[2019-09-08] MEDS: PANTOPRAZOLE 40 MG/VIAL IVP SCH (10:07)
[2019-09-08] MEDS: FUROSEMIDE 10 MG/ML 4ML VIAL IVP SCH ×2 (10:07→21:25)
[2019-09-08] MEDS: ENOXAPARIN SODIUM 30 MG/0.3 ML SQ SCH (10:08)
[2019-09-08 12:20] VITALS: BP 138/70
--- NOTE | 2019-09-08 13:05 | NUR ---
CM NOT/IA UNSUCCESSFUL UNABLE TO MEET WITH PATIENT, NEXT OF KIN CALLED SABINE ROSSI AND NOHEMI CHI, NO ANSWER. CM TO FOLLOW FOR IA INFORMATION. Addendum: 09/08/19 at 1646 by LAISHA MONDRAGON RN CM Amended: Links added.
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
--- NOTE | 2019-09-08 16:42 | NUR ---
CM NOTE/IA UNABLE TO MEET WITH PATIENT, NEXT OF KIN CALLED, DAPHNIE MUHAMMAD. PER SPOUSE, HAS MEDICAL POWER OF SPRINKLER IRRIGATION EQUIPMENT MECHANIC OVER PATIENT WELL OUT OF HOSPITAL DNR, ASKED FOR HER TO BRING PAPERWORK. ALSO STATES PATIENT IS SEMI INDEPENDENT WITH ADLS, NO, DME IN USE, NO HH OR PROVIDERS IN USE, HAS USE OF [facility] [place] AND FEELS SAFE FOR PATIENT TO RETURN HOME. Addendum: 09/08/19 at 1646 by LAISHA MONDRAGON RN CM Amended: Links added.
[2019-09-08 17:05] VITALS: BP 106/72
[2019-09-08 20:00] VITALS: BP 136/45
--- NOTE | 2019-09-08 21:28 | NUR ---
FAMILY UPDATE DAUGHTER, NOHEMI. CALLED FOR UPDATE. PATIENT CALLED DAUGHTER WITH C/O "SITTING IN POOP" AND NOT WANTING STAFF TO CLEAN HER UP. PATIENT REQUESTING TO BE PICKED UP FROM HOSPITAL. DAUGHTER TOLD PATIENT TO WAIT FOR MD IN THE MORNING. PER DAUGHTER, PATIENT HAS BEEN TAKEN OFF ANXIETY MEDICATIONS AND HAS INCREASED ANXIETY. DAUGHTER STATED PATIENT IS USED TO HAVING HER AT BEDSIDE TO CLEAN HER AND DOES NOT LIKE OTHER PEOPLE CLEANING HER. RN INFORMED HER THAT PATIENT ALLOWED HER TO CHECK HER BED FOR STOOL AND SHE WAS CLEAN. RN PROVIDED MEDICATION FOR UPSET STOMACH R/T ANXIETY PER PATIENTS REQUEST. PATIENT REFUSED FOR RN TO CLEAN HER AND ASKED RN TO GET OUT OF BED SHE WALKS AT HOME. PATIENTS DAUGHTER STATED THAT PATIENT DOES NOT AMBULATE AT HOME AND IS NOT TO BEAR WEIGHT ON RIGHT HIP DUE TO NEEDING SURGERY. PATIENT USES A SCOOTER TO GET AROUND AT HOME. DAUGHTER REQUESTED THAT DAY RN SPEAK WITH MD ABOUT DISCHARGING TO HOME AND FOLLOW UP AT PATIENTS APPT ON 09/10
--- NOTE | 2019-09-08 22:30 | NUR ---
ADLS PATIENT IS VERY ANXIOUS AND STATES THERE IS A PERSON IN HER BATHROOM. RN NOTED NO ONE IN HER BATHROOM AND CLOSED HER DOOR. 2 RNS PERFORMED PERICARE AND CLEANED THE PATIENT. RN INFORMED PATIENT THAT SHE HAS A STAGE 1 WOUND ON HER SACRUM AND NEEDS TO LET PROVIDERS CLEAN AND CHECK HER SO IT DOES NOT BECOME WORSE. PATIENT STATED THAT ONLY HER CARES FOR HER CORRECTLY. RN PROVIDED JUICE, CRACKERS, AND WARM BLANKET.
[2019-09-08] MEDS: ACETAMINOPHEN 325 MG TAB PO PRN (22:35)
--- NOTE | 2019-09-08 23:18 | NUR ---
PATIENT UPDATE PATIENT IS CRYING AND HAS CALLED THE COMMUNITY HEALTH COORDINATOR TO REQUEST HER AT BEDSIDE. INFORMED PATIENT NO VISITORS. PATIENT STATES SHE IS TOO ANXIOUS TO STAY HERE AND CAN'T WAIT UNTIL THE MORNING TO SEE THE PROVIDER. RN ENCOURAGED DISTRACTION TECHNIQUES; PATIENT STATES SHE JUST WANTS AND WILL CALL HER DAUGHTER.
--- NOTE | 2019-09-08 23:38 | NUR ---
PATIENT UPDATE PATIENT CALLED FUR JOINER MULTIPLE TIMES AND INFORMED RN THAT HER DAUGHTER IS PICKING HER UP. NOHEMI CALLED AND SPOKE WITH THIS RN. NOHEMI STATED THAT SHE IS NOT PICKING HER UP TONIGHT AND WANTS TO AWAIT PROVIDER ORDERS IN THE MORNING. PER DAUGHTER, PATIENT IS UP ALL NIGHT AND HAS ANXIETY AT HOME WELL. INFORMED DAUGHTER THAT THE SPOUSE IS LISTED NEXT A KIN AND WILL NEED TO BE PRESENT IF/WHEN CLEARED FOR DISCHARGE. PIPELAYING FITTER PRESENT FOR THE CONVERSATION AND IS AWARE THAT PATIENT HAS BEEN REQUESTING TO LEAVE, CALLED THE FUR JOINER AND HER DAUGHTER MULTIPLE TIMES. INFORMED PIPELAYING FITTER THAT AN APS CLAIM WAS MADE BY SW DUE TO PATIENT STATEMENTS ABOUT HOME SAFETY. PIPELAYING FITTER TALKED TO PATIENT AT BEDSIDE AND INFORMED HER THAT THE PLAN FOR THE PATIENT IS TO AWAIT PROVIDER ORDERS IN THE MORNING.
--- NOTE | 2019-09-09 02:56 | NUR ---
PATIENT STATUS PATIENT NOTED TO MANIPULATE CARDIAC LEADS CREATING ARTIFACT AND FALSELY HIGH HR. INSTRUCTED PATIENT TO LEAVE LEADS ON. APPLIED NEW BLANKET AND REPOSITION PATIENT ON LEFT SIDE USING PILLOWS FOR SUPPORT.
--- NOTE | 2019-09-09 04:42 | NUR ---
PATIENT STATUS PATIENT CONSISTENTLY REMOVING LEADS STATING "IT'S ALMOST TIME TO LEAVE". RN APPLIED LEADS AND INSTRUCTED PATIENT TO LEAVE THEM ON UNTIL PROVIDER DISCONTINUES THEM.
--- NOTE | 2019-09-09 04:44 | NUR ---
PATIENT STATUS RN ATTEMPTED TO OBTAIN BLOOD PRESSURE. PATIENT GRABBED BLOOD PRESSURE CUFF AND THREW ON FLOOR. BLOOD PRESSURE NOT OBTAINED AT THIS TIME.
[2019-09-09 05:11] LABS: BASOPHILS % (AUTO) 0.2 % (0.0-5.0); EOSINOPHILS % (AUTO) 1.9 % (0.0-8.0); HEMATOCRIT 35.8 % (36-48); LYMPHOCYTES % (AUTO) 8.6 % (21.0-51.0); MEAN CORPUSCULAR HEMOGLOBIN 31.1 pg (27.0-33.0); MEAN CORPUSCULAR HGB CONC 31.6 g/dL (32.0-36.0); MEAN CORPUSCULAR VOLUME 98.6 fL (79-99); MONOCYTES % (AUTO) 7.9 % (3.0-13.0); NEUTROPHILS % (AUTO) 81.2 % (40.0-77.0); PLATELET COUNT (AUTO) 105 K/uL (130-400); RED BLOOD CELL COUNT(AUTO) 3.63 MIL/uL (4.00-5.50); RED CELL DISTRIBUTION WIDTH 17.2 % (11.0-15.5); WHITE BLOOD COUNT (AUTO) 4.3 K/uL (4.8-10.8)
[2019-09-09] MEDS: INSULIN R PO SS1/2 SQ SCH ×4 (06:03→20:20)
[2019-09-09] MEDS: ENOXAPARIN SODIUM 30 MG/0.3 ML SQ SCH (07:34)
[2019-09-09] MEDS: FUROSEMIDE 10 MG/ML 4ML VIAL IVP SCH ×2 (07:34→19:40)
--- NOTE | 2019-09-09 07:40 | NUR ---
ASSESSMENT PT IS AAOX3 DENIES CP DENIES SOB. PT HAS ALL TELE LEADS REMOVED. REAPPLIED TELE LEADS AND VS OBTAINED. PATIENT STATES SHE DOESN'T WANT ANYTHING AND WANTS TO GO HOME. WILL RELAY THIS INFORMATION TO MD WHEN ROUNDS ARE MADE. DOOR AJAR CALL LIGHT WITHIN REACH.
[2019-09-09 07:53] VITALS: BP 129/57
[2019-09-09] MEDS: PANTOPRAZOLE 40 MG/VIAL IVP SCH (09:00)
[2019-09-09 09:47] VITALS: BP 143/52
--- NOTE | 2019-09-09 10:01 | NUR ---
REPORT GIVEN TO SHALONDA QUAN PT TRANSFERRED TO ROOM 325 ALL BELONGINGS TAKEN WITH PATIENT. CHART TAKEN UP WITH PATIENT WELL.
--- NOTE | 2019-09-09 10:15 | NUR ---
RECEIVED PT. TO ROOM 325. AWAKE ALERT.SALINE LOCK IN PLACE , ROJAS CATH IN AND DRAINING TO GRAVITY, URINE DARK LOUISE. ON AT 3.5 LITER
[2019-09-09 11:15] VITALS: BP 140/48
--- NOTE | 2019-09-09 11:30 | NUR ---
PT. WANTING TO LEAVE AMA, DR. MELGOZA WAS IN ROOM AT TME OF HER REQUEST, STATES IF SHE WANTS TO GO TO HAVE FAMILY PICK HER UP, NO AMBULANCE.
--- NOTE | 2019-09-09 15:00 | NUR ---
HAS BEEN ON FAMILY MOST OF DAY, FAMILY KEEPS CALLING, PROBLEMS AT HOME, PT. STATES SHE REALLY DOESN'T WANT TO GO, NO FEELING WELL.
[2019-09-09 16:08] VITALS: BP 132/48
--- NOTE | 2019-09-09 18:00 | NUR ---
AREA ON RT BUTTOCK WHICH IS RED AND SMOOTH, APPEARANCE OF SKIN JUST PEELING OFF, COVERED WITH ALLEVYN PATCH
--- NOTE | 2019-09-09 19:10 | NUR ---
patient had bowel movement. she has skin tears on right and left buttocks. i took a picture and placed it on the chart. cleaned the wounds with normal saline and placed an allevyn foam patch on her. will turn patient every 2 hours on her sides to prevent more skin breakdown.
--- NOTE | 2019-09-09 21:08 | NUR ---
spoke with doctor resendiz about patient's bigeminy and trigeminy pvc's and about patient's abnormal ekg and cardiac consult. i sent him the ekg. he is aware
[2019-09-09 21:35] VITALS: BP 119/53
[2019-09-09 22:24] LABS: CREATINE KINASE, TOTAL 56 U/L (21-232); MYOGLOBIN 122 ng/mL (10-92); TROPONIN I < 0.04 ng/mL (0.00-0.06)
[2019-09-10 00:34] VITALS: BP 111/52
--- NOTE | 2019-09-10 02:16 | NUR ---
moved the patient on her side at 20:00. 22:00, midnight, 02:00 am and will continue to turn her at 04:00 and 06:00 am.
--- NOTE | 2019-09-10 03:50 | NUR ---
spoke with daughter sheila and explained to her about the patient's condition. the patient continues to be confused and claims she is at home. she continues to be on the phone speaking with different family members. she did not sleep for tonight.
[2019-09-10 03:54] VITALS: BP 130/64
[2019-09-10] MEDS: INSULIN R PO SS1/2 SQ SCH ×4 (06:35→21:03)
[2019-09-10 07:55] VITALS: BP 138/54
[2019-09-10] MEDS: FUROSEMIDE 10 MG/ML 4ML VIAL IVP SCH (08:42)
[2019-09-10] MEDS: ENOXAPARIN SODIUM 30 MG/0.3 ML SQ SCH (08:43)
[2019-09-10] MEDS: PANTOPRAZOLE 40 MG/VIAL IVP SCH (09:00)
[2019-09-10 09:14] LABS: CARBON DIOXIDE 31 mmol/L (21-32); CHLORIDE 100 mmol/L (101-111); CREATINE KINASE, TOTAL 54 U/L (21-232); CREATININE 3.1 mg/dL (0.5-1.5); GLOMERULAR FILTR. RATE CALC 16 mL/min (>60); GLUCOSE,RANDOM 149 mg/dL (70-105); MYOGLOBIN 140 ng/mL (10-92); POTASSIUM 3.8 mmol/L (3.5-5.1); SODIUM SERUM 138 mmol/L (136-145); TROPONIN I < 0.04 ng/mL (0.00-0.06); UREA NITROGEN, BLOOD 66 mg/dL (7-18)
--- NOTE | 2019-09-10 10:00 | NUR ---
HAVE ALREADY RECEIVED SEVERAL CALLS FROM FAMILY ASKING WHEN SHE WILL BE DISCHARGED.
[2019-09-10 11:01] VITALS: BP 129/37
--- NOTE | 2019-09-10 16:00 | NUR ---
HEART RATE HAS CONSISTENTLY BEEN IN THE 60S ALL DAY.
--- NOTE | 2019-09-10 18:00 | NUR ---
HAS BEEN ON PHONE MOST OF DAY CALLING THE [facility] USE MEDICAL COORDINATOR AND JUST TALKING TO SELF. UPSET , WANTS TO GO HOME, STATES THINGS AT HOME ARE BAD AND FAMILY JUST LISTENS TO HER.
[2019-09-10] MEDS: FUROSEMIDE 10 MG/ML 4ML VIAL IV SCH (19:23)
[2019-09-10] MEDS: ACETAMINOPHEN 325 MG TAB PO PRN (19:29)
--- NOTE | 2019-09-10 20:00 | NUR ---
accucheck was 178 taken by mary johnson. the number was not registered on the system
[2019-09-10 20:37] VITALS: BP 137/56
[2019-09-11 00:55] VITALS: BP 125/68
[2019-09-11 04:21] VITALS: BP 115/54
--- NOTE | 2019-09-11 05:13 | NUR ---
patient moved every 2 hours to prevent further skin breakdown. she is confused and depressed. she refused a bed bath and she claims she will leave home "today."
--- NOTE | 2019-09-11 05:40 | NUR ---
patient refused labor economist to draw her blood work
[2019-09-11] MEDS: INSULIN R PO SS1/2 SQ SCH ×2 (06:10→11:30)
[2019-09-11 07:19] LABS: HEMATOCRIT 37.4 % (36-48); MEAN CORPUSCULAR HEMOGLOBIN 31.2 pg (27.0-33.0); MEAN CORPUSCULAR HGB CONC 31.8 g/dL (32.0-36.0); MEAN CORPUSCULAR VOLUME 98.2 fL (79-99); PLATELET COUNT (AUTO) 116 K/uL (130-400); RED BLOOD CELL COUNT(AUTO) 3.81 MIL/uL (4.00-5.50); RED CELL DISTRIBUTION WIDTH 17.3 % (11.0-15.5); WHITE BLOOD COUNT (AUTO) 5.1 K/uL (4.8-10.8)
[2019-09-11 07:35] VITALS: BP 132/64
[2019-09-11 07:38] LABS: PHOSPHORUS 4.4 mg/dL (2.5-4.9); POTASSIUM 4.1 mmol/L (3.5-5.1)
[2019-09-11 08:29] LABS: EOSINOPHILS % (MANUAL) 2 % (1-6); LYMPHOCYTES % (MANUAL) 7 % (22-44); MAN.DIFF COMMENT-IMPRESSION MANUAL DIFFERENTIAL; MONOCYTES % (MANUAL) 4 % (2-9); PLATELET MORPHOLOGY COMMENT DECREASED; SEGMENTED NEUTROPHILS % 87 % (40-70)
[2019-09-11] MEDS: FUROSEMIDE 10 MG/ML 4ML VIAL IV SCH (08:43)
[2019-09-11] MEDS: ENOXAPARIN SODIUM 30 MG/0.3 ML SQ SCH (08:44)
[2019-09-11] MEDS: PANTOPRAZOLE 40 MG/VIAL IVP SCH (08:50)
--- NOTE | 2019-09-11 10:15 | NUR ---
pt. wants to leave AMA paged dr. Cassidy
--- NOTE | 2019-09-11 11:04 | NUR ---
YARITZA CALLED PT TO HELP PUT PATIENT IN WHEELCHAIR, FAMILY WAS CALLED AND I SPOKE WITH NOHEMI. SHE IS AWARE MOM IS SIGHING OUT YARITZA.
--- NOTE | 2019-09-11 11:50 | NUR ---
Davian JEREZ ORDER TO REMOVE BOB.
--- NOTE | 2019-09-11 11:52 | NUR ---
PT LEFT VIA WHEELCHAIR AMA ON 3 LITERS OF 02. PT FAMILY WILL BE BRINGING THEIR OWN 02 TO TAKE HOME.
== END 2019-09-11 12:00 | disposition left against medical advice (07) | DRG 194 ==
LOC: EDH 17:40 → EDHIP 17:41 → DAHIP 09-07 12:30 → 3DH 09-09 09:57
PROVIDERS: ADMIT Internal Medicine Nephrology; ATTEND Internal Medicine Nephrology
DX: I13.0 Hypertensive heart and chronic kidney disease with heart failure and stage 1 through stage 4 chronic kidney disease, or unspecified chronic kidney disease (principal); N17.9 Acute kidney failure, unspecified; I50.33 Acute on chronic diastolic (congestive) heart failure; E11.22 Type 2 diabetes mellitus with diabetic chronic kidney disease; D64.9 Anemia, unspecified; F41.9 Anxiety disorder, unspecified; F32.9 Major depressive disorder, single episode, unspecified; E66.01 Morbid (severe) obesity due to excess calories; E03.9 Hypothyroidism, unspecified; I27.29 Other secondary pulmonary hypertension; I27.81 Cor pulmonale (chronic); I42.8 Other cardiomyopathies; I35.0 Nonrheumatic aortic (valve) stenosis; I49.9 Cardiac arrhythmia, unspecified; G47.33 Obstructive sleep apnea (adult) (pediatric); N18.4 Chronic kidney disease, stage 4 (severe); Z91.11 Patient's noncompliance with dietary regimen; Z91.14 Patient's other noncompliance with medication regimen; Z91.19 Patient's noncompliance with other medical treatment and regimen; Z90.49 Acquired absence of other specified parts of digestive tract; Z88.0 Allergy status to penicillin; Z88.7 Allergy status to serum and vaccine; Z88.8 Allergy status to other drugs, medicaments and biological substances; Z53.29 Procedure and treatment not carried out because of patient's decision for other reasons
CPT/HCPCS: 36415; 71045; 80048; 80053; 81001; 82140; 82550; 82948; 83735; 83874; 83880; 84100; 84443; 84484; 85025; 85610; 85730; 87088; 93005; 93306; C9113; G0378; J1650; J1815; J1940; J2405

== ENCOUNTER 2019-09-26 14:05 | Inpatient (IN) | payer MEDICAID ==
[~2019-09-26] VITALS: Ht 160 cm; Wt 178.8 kg
[~2019-09-26 14:05] MED LIST changes: +METO25TA6 PO
[2019-09-26 14:22] LABS: BASOPHILS % (AUTO) 0.5 % (0.0-5.0); EOSINOPHILS % (AUTO) 0.9 % (0.0-8.0); HEMATOCRIT 37.6 % (36-48); LYMPHOCYTES % (AUTO) 8.3 % (21.0-51.0); MEAN CORPUSCULAR HEMOGLOBIN 31.3 pg (27.0-33.0); MEAN CORPUSCULAR HGB CONC 31.6 g/dL (32.0-36.0); MEAN CORPUSCULAR VOLUME 98.9 fL (79-99); MONOCYTES % (AUTO) 6.1 % (3.0-13.0); NEUTROPHILS % (AUTO) 83.5 % (40.0-77.0); PLATELET COUNT (AUTO) 139 K/uL (130-400); RED CELL DISTRIBUTION WIDTH 16.3 % (11.0-15.5); WHITE BLOOD COUNT (AUTO) 4.2 K/uL (4.8-10.8)
[2019-09-26 14:33] LABS: CREATININE 2.8 mg/dL (0.5-1.5); POTASSIUM 3.9 mmol/L (3.5-5.1)
[2019-09-26 14:37] LABS: ALBUMIN 2.5 g/dL (3.5-5.0); BILIRUBIN,TOTAL 0.9 mg/dL (0.2-1.0); TOTAL PROTEIN, SERUM 7.1 g/dL (6.0-8.3)
[2019-09-26] MEDS ORDERED: ONDANSETRON HCL 4 MG/2 ML VIAL IVP PRN (17:00)
[2019-09-26] MEDS ORDERED: ACETAMINOPHEN 325 MG TAB PO PRN ×2 (17:00)
[2019-09-26] MEDS ORDERED: FUROSEMIDE 10 MG/ML 4ML VIAL ONE (17:05)
[2019-09-26] MEDS: FUROSEMIDE 10 MG/ML 4ML VIAL IVP SCH (21:00)
[2019-09-27 00:05] VITALS: BP 126/69
--- NOTE | 2019-09-27 01:31 | NUR ---
PATIENT WAS RECEIVED FROM ER, REPORT FROM TERRELL QUAN. PT IS HERE WITH C/O SOB AND ANASARCA. PATIENT WAS LAST HERE ABOUT WEEK AGO WITH SAME COMPLAINTS YET LEFT AMA. AT THIS TIME ADMITTING DIAGNOSIS IS FLUID VOLUME OVER LOAD AND RENAL FAILURE. PATIENT WITH SOME CONFUSION NOTED, SHE IS ALERT TO SELF, AND PLACE. SHE IS AWARE SHE CAME IN D/T SOB. ADMISSION COMPLETED WITH MEDICAL RECORDS FROM LAST ADMISSION. ORDERS NOTED AND TO BE CARRIED OUT. PATIENT WAS COVID NEGATIVE VIA RAPID TEST, PENDING PCR RESULTS. TELE WITH SB 56. WILL CONT TO MONITOR CLOSELY.
[2019-09-27 04:32] VITALS: BP 140/63
[2019-09-27] MEDS: INSULIN HUMULIN R 100 UNIT/ML 3ML SQ SCH ×3 (05:22→16:30)
[2019-09-27 05:41] LABS: HEMATOCRIT 39.1 % (36-48); MEAN CORPUSCULAR HEMOGLOBIN 31.3 pg (27.0-33.0); MEAN CORPUSCULAR HGB CONC 31.5 g/dL (32.0-36.0); MEAN CORPUSCULAR VOLUME 99.5 fL (79-99); RED BLOOD CELL COUNT(AUTO) 3.93 MIL/uL (4.00-5.50); RED CELL DISTRIBUTION WIDTH 15.8 % (11.0-15.5)
[2019-09-27 06:23] LABS: CREATININE 2.7 mg/dL (0.5-1.5); MAGNESIUM 2.2 mg/dL (1.80-2.40); PHOSPHORUS 4.6 mg/dL (2.5-4.9); POTASSIUM 4.2 mmol/L (3.5-5.1); THYROID STIMULATING HORMONE 55.58 uIU/mL (0.36-3.74); URIC ACID 15.4 mg/dL (2.6-7.2)
[2019-09-27 08:00] VITALS: BP 132/61
[2019-09-27] MEDS: FUROSEMIDE 10 MG/ML 4ML VIAL IVP SCH (08:13)
[2019-09-27] MEDS ORDERED: PANTOPRAZOLE 40 MG/VIAL IVP SCH (09:00)
--- NOTE | 2019-09-27 12:00 | NUR ---
CM NOTE/DISCHARGE PLANNING/DIALYSIS/AMA MAUREEN, PATIENT DAUGHTER, CALLED ME REGARDING DISCHARGE PLANNING. PER DAUGHTER, PATIENT IS USED TO PEOPLE AROUND HER AND HER SPOUSE FEEDING HER AND HER CHILDREN DOING EVERYTHING FOR HER. PER DAUGHTER, PATIENT IS AAOX3 WITH MOMENTS OF CONFUSION BUT FOR THE MOST PART "ALL THERE AND CAN MAKE HER OWN DECISIONS". INFORMED DAUGHTER THAT WE HAVE A NO VISITOR POLICY D/T COVID19 AND SPOUSE OR FAMILY WOULD NOT BE ALLOWED IN THIS COULD PUT THEM AT RISK FOR COVID19. ASKED DAUGHTER IF PATIENT HAD ANY ISSUES WITH ARM STRENGTH WHICH THEN SHE SAID NO. I INFORMED HER THAT IT IS IMPORTANT TO MAINTAIN CURRENT LEVEL OF FUNCTION AND THAT SHE SHOULD KEEP FEEDING HERSELF TO MAINTAIN INDEPENDENCE IF SHE CAN AND IF SHE WOULD REQUIRES HELP, SHE WOULD ASK NURSING STAFF OR TRACTOR OPERATOR LASER LEVELING. PATIENT HAS CALL LIGHT ON BED AND ABLE TO USE. PER MAUREEN, CONCERNED THAT HER MOTHER IS REFUSING DIALYSIS AND WANTS HER TO HAVE TREATMENT. EXPLAINED TO DAUGHTER THAT IF PATIENT IS AAOX3 AND DECLINING TREATMENT, WE CANNOT FORCE HER TO DO SO. ASKED DAUGHTER IF SHE HAS MPOA OR IF PATIENT HAS ADVANCED DIRECTIVES IN PLACE, PER MAUREEN, PATIENT DECLINED MPOA AND REFUSES TO GIVE SIGN ADVANCE DIRECTIVES. DAUGHTER EDUCATED THAT THIS SHOULD BE IN PLACE PATIENT REFUSING DIALYSIS AND WILL BECOME MORE AND MORE LETHARGIC/CONFUSED, DAUGHTER AGREED. AT THE MOMENT, DR. CRUM WAS PENDING ROUNDING WITH PATIENT AND TO DECIDE IF SHE REQUIRES DIALYSIS. WILL REACH OUT TO DR. CRUM FOR ADJUNCT PROFESSOR OF [employer]ISTORY CONSULT FOR HELP WITH DIALYSIS VS. PALLATIVE/HOSPICE CARE. PER DAUGHTER, HOSPICE/PALLATIVE HAD ALREADY BEEN TALKED ABOUT AT LAST ADMISSION BUT PATIENT REFUSED. PER DAUGHTER, PATIENT HAS VERBALIZED THAT SHE DOES NOT WANT TO COME TO HOSPITAL OR HAVE DIALYSIS AND WOULD WANT TO AT HOME WITH FAMILY AT BEDSIDE. MARIS RN, PRIMARY NURSE MADE AWARE. PENDING DR. CRUM TO ROUND FOR FURTHER TREATMENT RECOMMENDATIONS.
--- NOTE | 2019-09-27 12:00 | NUR ---
DR CRUM CAME TO VISIT PATIENT AND PATIENT WAS VERY VOCAL AND ARGUMENTATIVE. DR CRUM TOLD HER OF HER OPTIONS AND THAT THEY HAVE OFFERED HER DIALYSIS BEFORE AND SHE HAD REFUSED AND SHE SAID THAT THEY HAD NEVER TOLD HER THAT. PATIENT WAS VERY VOCAL AND WOULDN'T LET DR CRUM SPEAK. DR CRUM TOLD HER THAT SHE NEEDED TO MAKE A DECISION AND THAT ONCE SHE STARTED ON DIALYSIS THAT SHE WOULD NEED TO FOLLOW THE 3 TIMES A WEEK SCHEDULE AND NOT LEAVE AMA OR NOT SHOW UP TO HER TREATMENTS THIS WOULD BE DETRIMENTAL TO HER HEALTH. PATIENT HAS BEEN CALLING ALL OUR DEPARTMENTS AND EVEN CALLED 911 SHE IS INSISTENT ON LEAVING. PATIENT HAS REFUSED HER MEDICATIONS AND REFUSED FOR US TO REPLACE THE LEADS ON HER TELEMETRY. Addendum: 09/27/19 at 1529 by AASHISH SUTTON RN RN Amended: Links added.
[2019-09-27] MEDS ORDERED: LEVOTHYROXINE 50 MCG TABLET PO SCH (12:15)
[2019-09-27] MEDS ORDERED: LEVOTHYROXINE 100 MCG TABLET PO SCH (14:36)
--- NOTE | 2019-09-27 15:29 | NUR ---
LATENT FINGERPRINT EXAMINER CAME TO VISIT WITH PATIENT TO TRY AND DECIDE WHAT SHE WANTS TO DO. DAUGHTERS HAVE CALLED ME AT LEAST 10 TIMES TODAY DISCUSSING SEVERAL ISSUES FROM HER LEAVING AMA, HOSPICE AND DIALYSIS. WHEN SPEAKING TO THE PATIENT SHE HAS BEEN REFUSING HER TREATMENT SHE DENIED ANY OF THIS AND WHEN I PICKED UP THE TELEMETRY OFF THE FLOOR AND INSTRUCTED HER THAT I WAS NOT GOING TO TRY AND PUT THIS BACK ON SHE HAS BEEN REFUSING TO HAVE IT ON. SHE SAID "WHEN DID THEY PUT THIS ON AND THAT SHE DID NOT TAKE IT OFF." I TOLD HER THAT THIS WAS TO HELP MONITOR HER HEART AND THAT SHE HAS BEEN PULLING OFF HER LEADS SINCE EARLY THIS MORNING AND WOULD PULL THEM OFF EVEN AFTER WE REPLACED THEM. PATIENT DENIED THIS AND PARTITION ASSEMBLER WAS ON THE FLOOR. LATENT FINGERPRINT EXAMINER WAS IN THE ROOM DURING ALL THIS CONVERSATION. Addendum: 09/27/19 at 1535 by AASHISH SUTTON RN RN Amended: Links added.
--- NOTE | 2019-09-27 15:30 | NUR ---
SS visited pt. who is familiar to this worker from last admission. Pt. verbalizing to this worker that she wants to go home. SW spoke with pt. about her re-admission and made inquiries as to what pt. would like or not like have done. SW spoke with pt. about Dialysis, pt. voiced that she did not want it because she was told by physician that she did not need it. SW spoke to pt. about benefits of dialysis with compliance; pt. stated that she did not want it. SW spoke with pt. about comfort care/hospice at home, however, pt. stated that she did not want anyone in her home including hospice for comfort care. SW educated pt. on benefits of hospice if she no longer wishes to return to hospital or does not want further or aggressive treatment, however, pt. continued to decline. Pt. informed that SW was going to ask KADEEM Bergman to come to the room so that she could verbalize her wishes to both of us; pt. in agreement. OTIS and KADEEM Bergman spoke with pt. who again, stated that she did not want to go home with hospice and that she would have to speak with her family about dialysis. Pt. stated that after she spoke w/family, she would inform KADEEM Bergman of decision. OTIS contacted pt's dtr. Heydi, with BERNIE Solis on speakerphone. SW informed Heydi of pt's refusal for hospice/comfort care and that pt. stated she would speaking with family about dialysis. Per dtr. Heydi, pt. has already contacted her sister to pick her up at hospital, thus refusing further treatment. Heydi stated that all of her siblings/family will have to have a conversation with pt. at home about her wishes for further treatment; BERNIE and OTIS in agreement with Heydi.
--- NOTE | 2019-09-27 15:50 | NUR ---
[facility] consult Attempted to assess patient as ordered. Patient is refusing assessment. States she is leaving and already has treatment at home.
--- NOTE | 2019-09-27 17:09 | NUR ---
CM NOTE/AMA PER METALLURGICAL SPECIALIST, VISITED PATIENT AND DECLINED HOSPICE BUT SAID SHE WOULD THINK ABOUT DIALYSIS. SPOKE WITH MAUREEN, PATIENT DAUGHTER, ON SPEAKER PHONE ALONG WITH VIRTUAL REALITY SPECIALIST, ARMOND MONDRAGON. DAUGHTER STATES MOTHER JUST CALLED HER AND TOLD HER TO PICK HER UP AND THAT SHE WOULD BE SIGNED OUT AMA. MAUREEN MADE AWARE TO FOLLOW UP WITH DR. CRUM FOR FUTURE PALLATIVE/HOSPICE SERVICES THAT MIGHT BE INITIATED AT HOME IF PATIENT AGREES. MARIS RN, CALLED TO GIVE REPORT ON CONVERSATION HAD WITH METALLURGICAL SPECIALIST, MAUREEN AND Sarita. DR. CRUM PAGED, PENDING CALL BACK, TO INFORM HIM OF PATIENT DECISION TO SIGN OUT AMA.
--- NOTE | 2019-09-27 17:27 | NUR ---
PATIENT INSISTENT ON SIGNING OUT AMA AND INSTRUCTED HER ON THE WARNINGS THAT DR CRUM WARNED HER ABOUT HER DIET AND THAT SHE WILL EVENTUALLY NEED DIALYSIS IF SHE DOES NOT TAKE HER MEDICATIONS ORDERED AND FOLLOW A STRICT DIET. 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 Addendum: 09/27/19 at 1731 by AASHISH SUTTON RN RN Amended: Links added.
[2019-09-28] MEDS ORDERED: FOLIC ACID/VITAMIN B COMP W-C 1 CAP TAB PO SCH (09:00)
== END 2019-09-27 18:25 | disposition left against medical advice (07) | DRG 425 ==
LOC: EDH 14:05 → EDHIP 14:06 → 4DH 09-27 00:05
PROVIDERS: ADMIT Internal Medicine Nephrology; ATTEND Internal Medicine Nephrology
DX: E87.70 Fluid overload, unspecified (principal); J81.1 Chronic pulmonary edema; E11.21 Type 2 diabetes mellitus with diabetic nephropathy; D64.9 Anemia, unspecified; E66.01 Morbid (severe) obesity due to excess calories; G47.30 Sleep apnea, unspecified; N17.9 Acute kidney failure, unspecified; E11.22 Type 2 diabetes mellitus with diabetic chronic kidney disease; N18.4 Chronic kidney disease, stage 4 (severe); I13.0 Hypertensive heart and chronic kidney disease with heart failure and stage 1 through stage 4 chronic kidney disease, or unspecified chronic kidney disease; I50.9 Heart failure, unspecified; E03.9 Hypothyroidism, unspecified; F41.9 Anxiety disorder, unspecified; F32.9 Major depressive disorder, single episode, unspecified; Z20.828 Contact with and (suspected) exposure to other viral communicable diseases; Z68.44 Body mass index [BMI] 60.0-69.9, adult; Z91.11 Patient's noncompliance with dietary regimen; Z71.89 Other specified counseling; Z91.19 Patient's noncompliance with other medical treatment and regimen; Z91.14 Patient's other noncompliance with medication regimen; Z88.0 Allergy status to penicillin; Z88.7 Allergy status to serum and vaccine; Z88.8 Allergy status to other drugs, medicaments and biological substances
CPT/HCPCS: 36415; 71045; 80048; 80053; 82948; 83735; 84100; 84443; 84484; 84550; 85025; 85027; 87426; 93005; 99291; C9113; G0378; J1940

== ENCOUNTER 2019-10-03 16:43 | Inpatient (IN) | payer MEDICAID ==
[~2019-10-03] VITALS: Ht 160 cm; Wt 176.2 kg
[2019-10-03 17:18] LABS: BASOPHILS % (AUTO) 0.6 % (0.0-5.0); EOSINOPHILS % (AUTO) 2.3 % (0.0-8.0); HEMATOCRIT 40.7 % (36-48); LYMPHOCYTES % (AUTO) 8.9 % (21.0-51.0); MEAN CORPUSCULAR HEMOGLOBIN 31.5 pg (27.0-33.0); MEAN CORPUSCULAR HGB CONC 31.7 g/dL (32.0-36.0); MEAN CORPUSCULAR VOLUME 99.5 fL (79-99); MONOCYTES % (AUTO) 7.3 % (3.0-13.0); NEUTROPHILS % (AUTO) 80.3 % (40.0-77.0); PLATELET COUNT (AUTO) 145 K/uL (130-400); RED BLOOD CELL COUNT(AUTO) 4.09 MIL/uL (4.00-5.50); RED CELL DISTRIBUTION WIDTH 16.5 % (11.0-15.5); WHITE BLOOD COUNT (AUTO) 4.8 K/uL (4.8-10.8)
[2019-10-03 17:34] LABS: INR 1.14 (0.85-1.15); PARTIAL THROMBOPLASTIN TIME 29.4 SEC (26.3-35.5); PROTHROMBIN TIME 12.2 SEC (9.6-11.6)
[2019-10-03 17:36] LABS: CREATININE 2.9 mg/dL (0.5-1.5)
[2019-10-03 17:40] LABS: ALBUMIN 2.7 g/dL (3.5-5.0); BILIRUBIN,TOTAL 0.8 mg/dL (0.2-1.0); TOTAL PROTEIN, SERUM 7.3 g/dL (6.0-8.3)
[2019-10-03 17:48] LABS: B-TYPE NATRIURETIC PEPTIDE 2400 pg/mL (0-100)
[2019-10-03] MEDS ORDERED: FUROSEMIDE 10 MG/ML 4ML VIAL ONE (18:29)
[2019-10-03] MEDS: INSULIN R PO SS1 SQ SCH (21:00)
[2019-10-04] MEDS ORDERED: FUROSEMIDE 10 MG/ML 4ML VIAL ONE (05:45)
[2019-10-04 06:18] LABS: BASOPHILS % (AUTO) 0.4 % (0.0-5.0); EOSINOPHILS % (AUTO) 1.8 % (0.0-8.0); HEMATOCRIT 39.1 % (36-48); LYMPHOCYTES % (AUTO) 6.8 % (21.0-51.0); MEAN CORPUSCULAR HEMOGLOBIN 31.9 pg (27.0-33.0); MEAN CORPUSCULAR VOLUME 99.7 fL (79-99); MONOCYTES % (AUTO) 6.2 % (3.0-13.0); NEUTROPHILS % (AUTO) 84.2 % (40.0-77.0); PLATELET COUNT (AUTO) 133 K/uL (130-400); RED BLOOD CELL COUNT(AUTO) 3.92 MIL/uL (4.00-5.50); RED CELL DISTRIBUTION WIDTH 16.2 % (11.0-15.5); WHITE BLOOD COUNT (AUTO) 5.5 K/uL (4.8-10.8)
[2019-10-04 06:32] LABS: ALBUMIN 2.8 g/dL (3.5-5.0); BILIRUBIN,TOTAL 1.2 mg/dL (0.2-1.0); CREATININE 2.9 mg/dL (0.5-1.5); POTASSIUM 3.6 mmol/L (3.5-5.1); TOTAL PROTEIN, SERUM 7.3 g/dL (6.0-8.3)
[2019-10-04] MEDS: INSULIN R PO SS1 SQ SCH ×4 (07:30→20:21)
[2019-10-04] MEDS: FUROSEMIDE 10 MG/ML 4ML VIAL IVP SCH ×2 (09:00→20:21)
[2019-10-04] MEDS ORDERED: TRAMADOL HCL 50 MG TABLET PO PRN (09:45)
--- NOTE | 2019-10-04 10:47 | NUR ---
Patient still in ER department, awaiting for patient to be transferred to medical floor in order to be able to initiate skilled Physical Therapy Evaluation as per ordered by Sumeet Lechuga MD Addendum: 10/04/19 at 1049 by RHONDA BOURNE, PT PT Amended: Links added.
[2019-10-04 12:50] VITALS: BP 141/53
[2019-10-04] MEDS: LIDOCAINE HCL 2% VISCOUS 15 ML UDCUP MM SCH ×2 (14:00→20:21)
[2019-10-04 16:00] VITALS: BP 141/48
--- NOTE | 2019-10-04 17:10 | NUR ---
CM NOTE/IA UNABLE TO MEET WITH PATIENT, NEXT OF KIN CALLED, NOHEMI SUTTON. PER DAUGHTER, PATIENT LIVES WITH FAMILY, IS DEPENDENT WITH ADLS, HAS USE OF OXYGEN FROM [facility] PATIENT, BED BOUND NOW, AND HAS USE OF [facility] IN [place]. PER DAUGHTER, PATIENT HAS HISTORY OF LEAVING AMA. IF PATIENT DECIDES TO LEAVE AMA, WE ARE TO CALL MAUREEN FOR AMA MOTHER SUPERIOR, OTHER L[employer]MAN, PATIENT TO USE EMS TRANSPORT TO RETURN HOME. Addendum: 10/04/19 at 1714 by LAISHA MONDRAGON RN CM Amended: Links added.
[2019-10-04 20:00] VITALS: BP 107/56
[2019-10-04] MEDS ORDERED: METOPROLOL TARTRATE 25 MG TAB PO SCH (21:00)
--- NOTE | 2019-10-04 23:34 | NUR ---
AFTER LONG DISCUSSION WITH AND DAUGHTER, MAUREEN, PT DECIDED TO LEAVE AGAINST MEDICAL ADVISE. I SPOKE WITH YORDAN Block FOR DR. CRUM. SHE STATES PATIENT IS KNOWN FOR LEAVING AMA. PIV TO LEFT HAND AND LEFT AC REMOVED WITH BOTH CATHETERS IN TACT. F/C REMOVED WITHOUT COMPLICATIONS. PT ESCORTED TO PRIVATE VEHICLE WHERE SPOUSE AND DAUGHTER WERE WAITING FOR HER.
[2019-10-05] MEDS ORDERED: FOLIC ACID 1 MG TABLET PO SCH (09:00)
== END 2019-10-04 23:55 | disposition left against medical advice (07) | DRG 425 ==
LOC: EDH 16:43 → EDHIP 16:44 → UNDOADMIN 19:10 → 3BH 10-04 12:15
PROVIDERS: ADMIT Internal Medicine Nephrology; ATTEND Internal Medicine Nephrology
DX: E87.70 Fluid overload, unspecified (principal); N28.9 Disorder of kidney and ureter, unspecified; Z53.29 Procedure and treatment not carried out because of patient's decision for other reasons; Z20.828 Contact with and (suspected) exposure to other viral communicable diseases; E11.9 Type 2 diabetes mellitus without complications; I10 Essential (primary) hypertension; I25.10 Atherosclerotic heart disease of native coronary artery without angina pectoris; R62.7 Adult failure to thrive; E66.9 Obesity, unspecified; R94.4 Abnormal results of kidney function studies; Z68.44 Body mass index [BMI] 60.0-69.9, adult; Z88.0 Allergy status to penicillin; Z98.891 History of uterine scar from previous surgery; Z91.19 Patient's noncompliance with other medical treatment and regimen
CPT/HCPCS: 36415; 71045; 80053; 82550; 82948; 83880; 84484; 85025; 85610; 85730; 87426; 93005; G0378; J1940; U0003